=== PATIENT | male | born 1955 | race Caucasian/White ===

== ENCOUNTER 2018-01-26 13:03 | Inpatient (IN) ==
[2018-01-26] MEDS ORDERED: Ipratropium/Albuterol Neb 3 ML IH ONE (13:45)
--- NOTE | 2018-01-26 14:15 | Emergency Department Note ---
Disposition Clinical Impression: Acute exacerbation of chronic obstructive airways disease, Elevated troponin, Hypoxemia Atrial flutter Qualifiers: Atrial flutter type: unspecified Qualified Code(s): I48.92 - Unspecified atrial flutter Disposition: Admitted As Inpatient Condition: Fair SOB HPI - General Chief Complaint: ED Shortness of Breath/Dyspnea Stated Complaint: TEETEE Time Seen by Provider: 01/26/18 13:33 Source: patient Limitations: no limitations Nursing Notes Reviewed: Yes Vital Signs Reviewed: Yes - History of Present Illness Presents with 5 days of shortness of breath worse with exertion and began after he was burning some logs and leaves in his yard and the patient does have a history of emphysema but does not use home oxygen. He does have lung cancer diagnosed 1-1/2 years ago and has had chemotherapy and radiation but no surgery and he denies any chest pain or discomfort. Does have some rhinorrhea, cough, sneeze. No fever or blurred vision. No blood in the urine or stool. No pain or swelling or numbness of the extremities, skin rash or bruising of the skin. Social history: Smoker, is here with his - Related Data Home Medications Medication Instructions Recorded Confirmed Albuterol Sulfate [Proair Hfa] 2 puff IH Q6H PRN 05/19/17 01/26/18 Apixaban [Eliquis] 5 mg PO BID 05/19/17 01/26/18 Atorvastatin Calcium [Lipitor] 80 mg PO HS 05/19/17 01/26/18 Carvedilol 12.5 mg PO BID 05/19/17 01/26/18 Clopidogrel [Plavix] 75 mg PO DAILY 05/19/17 01/26/18 Isosorbide MONOnitrate (24 HR) 30 mg PO DAILY 05/19/17 01/26/18 [Imdur] Lisinopril 2.5 mg PO DAILY 05/19/17 01/26/18 Tizanidine HCl 4 mg PO TID PRN 01/26/18 01/26/18 Previous Rx's Medication Instructions Recorded Omeprazole [PriLOSEC] 20 mg PO DAILY #30 cap 08/16/16 amLODIPine [Norvasc] 10 mg PO DAILY #60 tablet 08/24/16 Allergies Allergy/AdvReac Type Severity Reaction Status Date / Time [place] Allergy Hives Verified 10/19/17 10:47 Review of Systems: As Per HPI Past Medical History - Past Medical History Medical history: Reports: COPD Psychiatric history: Reports: no psych history - Social History Smoking Status: Current every day smoker Smokeless Tobacco Status: No Alcohol use: Reports: rarely Drug use: Reports: none Physical Exam CONSTITUTIONAL: Alert and oriented X3, well-nourished, well appearing, in no apparent distress HEAD: Normocephalic; atraumatic. EYES: PERRL, no scleral icterus. NOSE: The nose is normal in appearance without rhinorrhea RESP: Normal chest excursion with respiration; breath sounds with bilateral rhonchi and wheezing which is symmetric CARD: Regular rhythm, without murmurs, rub or gallop ABD: Non-distended; non-tender, soft,without rigidity, rebound or guarding SKIN: Normal for age and race; warm and dry; no apparent lesions EXTREMITIES: Pulses are 2 plus and equal times 4 extremities, no peripheral edema or calf muscle pain. - General Limitations: no limitations General appearance: alert, in no apparent distress Course Vital Signs Temperature 97.7 F 01/26/18 13:25 Pulse Rate 81 01/26/18 13:25 Respiratory Rate 24 01/26/18 13:25 Blood Pressure 98/57 01/26/18 13:25 O2 Sat by Pulse Oximetry 88 01/26/18 13:25 Temperature 97.7 F 01/26/18 13:41 Pulse Rate 104 01/26/18 17:05 Respiratory Rate 16 01/26/18 17:24 Blood Pressure 92/55 01/26/18 17:24 O2 Sat by Pulse Oximetry 98 01/26/18 17:05 Oxygen Delivery Oxygen Delivery Room Air Shortness of Breath/Dyspnea - [facility] Narrative Medical decision making narrative: Patient's symptoms likely from COPD exacerbation, does have a history of lung cancer, chest x-ray, labs including troponin, EKG. The patient will receive a DuoNeb as well as IV steroids. Will be watched closely here on the monitor and pulse oximeter. 1415 I did review the radiology results without acute abnormality and did read demonstrate the mass but not a infiltrate, I did review the labs with some mild hyponatremia, troponin is elevated. I did speak with the hospitalist accepts the patient for admission for COPD exacerbation. Has already received DuoNeb and steroids and I will add on antibiotics and the patient will be admitted 1553 I was just shown an EKG which was ordered by the nurse and handed to me by the tech just now showing atrial flutter with a rate of 111 bpm 1655 I did speak with the patient and his and the patient does have a history of atrial fibrillation/flutter and does take Eliquis 1729 - Medical Records Medical records reviewed: Yes I reviewed the patient's medical records. - Lab Data Lab results reviewed: Yes I reviewed the patient's lab results. Result diagrams: 01/26/18 14:49 01/26/18 14:49 Lab Results 01/26/18 01/26/18 01/26/18 Range/Units 14:49 14:49 14:49 WBC 11.4 H (4.3-11.1) K/mcL RBC 4.28 (4.19-5.50) M/mcL Hgb 13.0 (12.9-16.9) g/dL Hct 39.2 (37.5-50.1) % MCV 91.6 (83.0-100.0) fL MCH 30.4 (28.0-33.3) pg MCHC 33.2 (31.6-35.5) g/dL RDW 13.0 (11.5-14.5) % Plt Count 322 (140-400) K/mcL MPV 8.8 L (9.4-12.4) fL Immature Gran % 0.3 (0-4) % Seg Neutrophils % 83.0 % Lymphocytes % 7.4 % Monocytes % 8.9 % Eosinophils % 0.1 % Basophils % 0.3 % Neutrophils # 9.5 H (1.6-8.9) K/mcL Lymphocytes # 0.9 (0.6-4.6) K/mcL Monocytes # 1.0 (0.0-1.3) K/mcL Eosinophils # 0.0 (0.0-0.6) K/mcL Basophils # 0.0 (0.0-0.2) K/mcL Sodium 130 L (136-145) mEq/L Potassium 3.9 (3.5-5.1) mEq/L Chloride 95 L (98-107) mEq/L Carbon Dioxide 29 (23-29) mEq/L BUN 37 H (8-23) mg/dL Creatinine 1.17 (0.70-1.30) mg/dL Est GFR ( Amer) > 60 (> 60) Est GFR (Non-Af Amer) > 60 (> 60) BUN/Creatinine Ratio 32 H (6-26) Glucose 123 H (70-105) mg/dL Calculated Osmolality 280 (280-300) Lactic Acid 0.9 (0.5-2.2) mmol/L Calcium 9.6 (8.6-10.3) mg/dL Troponin I 0.07 H* (< 0.04) ng/mL - Radiology Data Radiology results reviewed: Yes I reviewed the patient's radiology results. Critical Care Time Critical Care Time: No
[2018-01-26] MEDS ORDERED: Dexamethasone 4 MG/ML VIAL IVP ONE (14:16)
[2018-01-26 15:06] LABS: Hematocrit 39.2 % (37.5-50.1); Mean Corpuscular HGB Conc 33.2 g/dL (31.6-35.5); Mean Corpuscular Hemoglobin 30.4 pg (28.0-33.3); Mean Corpuscular Volume 91.6 fL (83.0-100.0); Mean Platelet Volume 8.8 fL (9.4-12.4); Platelet Count 322 K/mcL (140-400); Red Blood Count 4.28 M/mcL (4.19-5.50)
[2018-01-26 15:07] LABS: Basophils % 0.3 %; Eosinophils % 0.1 %; Immature Granulocytes % 0.3 % (0-4); Lymphocytes # 0.9 K/mcL (0.6-4.6); Lymphocytes % 7.4 %; Monocytes % 8.9 %; Neutrophils # 9.5 K/mcL (1.6-8.9)
[2018-01-26 15:31] LABS: BUN/Creatinine Ratio 32 (6-26); Blood Urea Nitrogen 37 mg/dL (8-23); Calcium 9.6 mg/dL (8.6-10.3); Carbon Dioxide 29 mEq/L (23-29); Chloride 95 mEq/L (98-107); Glucose 123 mg/dL (70-105); Osmolality,Calculated 280 (280-300); Potassium 3.9 mEq/L (3.5-5.1); Sodium 130 mEq/L (136-145); eGFR For Non-African Americans > 60 (> 60)
[2018-01-26 15:35] LABS: Troponin I 0.07 ng/mL (< 0.04)
[2018-01-26] MEDS ORDERED: cefTRIAXone 1,000 MG in Water for inj. (sterile) 20 ML 10 ML IVPB ONE (16:17)
[2018-01-26] MEDS ORDERED: Azithromycin 500 MG in D5% in Water 250 ML IVPB ONE (16:17)
[2018-01-26] MEDS ORDERED: 0.9 % Sodium Chloride 1,000 ML ONE (17:00)
[2018-01-26] MEDS ORDERED: Acetaminophen 325 MG TABLET PO PRN (19:54)
[2018-01-26] MEDS ORDERED: Naloxone 0.4 MG/ML INJ IVP PRN (19:54)
[2018-01-26] MEDS ORDERED: Ondansetron 4 MG/2 ML VIAL IVP PRN (19:55)
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
[2018-01-26] MEDS ORDERED: tiZANidine 4 MG TABLET PO PRN (20:53)
[2018-01-26] MEDS ORDERED: *HR* HYDROcodone/Acet 5/325 mg TABLET PO PRN (20:54)
[2018-01-26] MEDS: predniSONE 20 MG TABLET PO SCH (21:17)
[2018-01-26] MEDS: Apixaban 5 MG TABLET PO SCH (21:18)
[2018-01-26] MEDS: Ipratropium/Albuterol Neb 3 ML IH SCH (23:46)
[2018-01-27] MEDS: Ipratropium/Albuterol Neb 3 ML IH SCH ×4 (03:52→23:12)
[2018-01-27 03:58] LABS: Basophils % 0.2 %; Hematocrit 38.7 % (37.5-50.1); Hemoglobin 12.7 g/dL (12.9-16.9); Immature Granulocytes % 0.3 % (0-4); Lymphocytes # 0.4 K/mcL (0.6-4.6); Lymphocytes % 6.5 %; Mean Corpuscular HGB Conc 32.8 g/dL (31.6-35.5); Mean Corpuscular Volume 91.3 fL (83.0-100.0); Mean Platelet Volume 8.9 fL (9.4-12.4); Monocytes # 0.2 K/mcL (0.0-1.3); Monocytes % 2.5 %; Neutrophils # 5.7 K/mcL (1.6-8.9); Platelet Count 307 K/mcL (140-400); Red Blood Count 4.24 M/mcL (4.19-5.50); Red Cell Distribution Width 12.8 % (11.5-14.5); Segmented Neutrophils % 90.5 %
[2018-01-27 04:23] LABS: Troponin I 0.03 ng/mL (< 0.04)
[2018-01-27] MEDS: Nicotine 14 MG PATCH.TD24 TD SCH (07:49)
[2018-01-27] MEDS: Isosorbide MONOnitrate (24 HR) 30 MG TAB.ER.24H PO SCH ×2 (07:49→08:14)
[2018-01-27] MEDS: Apixaban 5 MG TABLET PO SCH ×2 (07:50→20:04)
[2018-01-27] MEDS: predniSONE 20 MG TABLET PO SCH ×3 (07:50→20:04)
[2018-01-27] MEDS ORDERED: Amiodarone Premix 150 MG/100 ML BAG IVPB ONE (08:33)
[2018-01-27 08:36] LABS: Magnesium 2.3 mg/dL (1.6-2.6); Phosphorous 3.2 mg/dL (2.7-4.5)
[2018-01-27] MEDS ORDERED: Amiodarone Premix 360 MG/200 ML BAG IVC ONE (08:43)
[2018-01-27] MEDS ORDERED: amLODIPine 5 MG TABLET PO SCH (09:00)
[2018-01-27] MEDS ORDERED: levoFLOXacin 500 MG TABLET PO SCH (09:00)
[2018-01-27 09:15] LABS: Thyroid Stimulating Hormone 0.261 mcIU/mL (0.340-5.600)
[2018-01-27] MEDS: amLODIPine 5 MG TABLET PO SCH (09:37)
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
--- NOTE | 2018-01-27 18:26 | Internal Med Progress Note ---
Hospitalist Progress Note - Encounter Date of Encounter: 01/27/18 Time of Encounter: 18:24 - Subjective Interval History: Pt states he is feeling better. Denies worsening SOB or SOB at rest. Notified by nurse that his HR was in 150's. EKG showed A flutter with 3 to one conduction and elevated HR likely an over read. Discussed to cardiology. Pt reports prior hx of A flutter. Denies CP. - Exam Vitals: Temp Pulse Resp BP Pulse Ox 97.8 F 78 16 104/64 95 01/27/18 15:47 01/27/18 16:02 01/27/18 16:18 01/27/18 18:00 01/27/18 16:18 Exam: General appearance: Present: A&O X 3, no acute distress Exam: - Head Head exam: Present: atraumatic, normocephalic - Eye Eye exam: Present: PERRL, conjuntiva pink, sclera anicteric Pupils: Present: PERRL - Neck Neck exam general surgery: Present: supple, trachea midline. Absent: lymphadenopathy - Respiratory Respiratory exam: Present: Positive wheezing. Absent: accessory muscle use, rales, or rhonchi. - Cardiovascular Cardiovascular exam: Present: RRR but tachy, +S1, +S2. Absent: diastolic murmur , gallop, rubs, systolic murmur - GI/Abdominal GI/Abdominal exam: Present: normal bowel sounds, soft, no peritoneal signs. Absent: distended, tenderness - Extremities Exam Extremities exam: Present: warm, radial pulses palpable and symmetrical. Absent : calf tenderness, cyanotic, pedal edema - Neurological Exam Neurological exam: Present: CN II-XII intact, oriented X3, no focal deficits. Absent: pronater drift, facial droop, speech deficit - Skin Skin exam: Present: dry, intact - Assessment and Plan (1) Atrial flutter Current Visit: Yes Status: Acute Assessment and Plan: Pt on ELiquis. Unable to give cardizem due to low BP. cardiology consulted to see. Amiodarone gtt started. (2) Acute exacerbation of chronic obstructive airways disease Current Visit: Yes Status: Acute Assessment and Plan: Pt states he's much improved after neb treatment in ED. Pt is not on home O2. Will continue with nebs and steriod. will place on levaquin for prophylaxis but was DCed due to need to start amiodarone for A flutter. (3) Elevated troponin Current Visit: Yes Status: Acute (4) Chronic thoracic back pain Current Visit: No Status: Chronic Assessment and Plan: Resume prn pain meds (5) Squamous cell carcinoma of left lung Current Visit: No Status: Chronic Assessment and Plan: s/p chemo and radiation follows up with oncology. Diagnosed Jun 07 2016. (6) CAD (coronary artery disease) Current Visit: Yes Status: Acute Assessment and Plan: Pt states he is s/p LHC with stents Mar 2017. Resumed home ASA, statin, BB, and DVT Prophylaxis: Eliquis - Summary of Assessment and Plan Summary of Assessment and Plan: Mr. Tolentino is a 62 year old male with past medical history of lung CA s/p chemo and radiation, COPD, atrial flutter who presents with worsening SOB. HE denies fever or chills. He does report cough but denies sputum production. He denies chest pain. He denies sick contacts. He denies recent steroid use. Pt is not on home oxygen and plan to wean prior to discharge. - Time Spent with Patient Total time spent is greater than 50% in coordination of care (as documented) at patient's floor/unit and/or counseling patient: less than 15 minutes Plan of Care Discussed with: patient Internal Medicine: Result - Labs CBC & Chem 7: 01/27/18 03:21 01/26/18 14:49 Labs: Short CBC 01/27/18 Range/Units 03:21 WBC 6.3 (4.3-11.1) K/mcL Hgb 12.7 L (12.9-16.9) g/dL Hct 38.7 (37.5-50.1) % Plt Count 307 (140-400) K/mcL Neutrophils # 5.7 (1.6-8.9) K/mcL Cardiac Enzymes 01/26/18 01/27/18 Range/Units 21:13 03:21 Troponin I < 0.03 0.03 (< 0.04) ng/mL Consult Discharge Plan - Plan Referrals: Jovana Winkler CNP [Partnered Physician] - (Office will call patient at home with follow up appointment) Kuldip Argueta MD [Primary Care Provider] - 02/01/18 2:30 pm (1) Atrial flutter Qualifiers: Atrial flutter type: atypical Qualified Code(s): I48.4 - Atypical atrial flutter (4) Chronic thoracic back pain Qualifiers: Back pain laterality: midline Qualified Code(s): M54.6 - Pain in thoracic spine; G89.29 - Other chronic pain (6) CAD (coronary artery disease) Qualifiers: Coronary Disease-Associated Artery/Lesion type: [place] artery [place] vs. transplanted heart: [place] heart Associated angina: without angina Qualified Code(s): I25.10 - Atherosclerotic heart disease of [place] coronary artery without angina pectoris
[2018-01-27] MEDS: Amiodarone Premix 360 MG/200 ML BAG IVC SCH (20:04)
[2018-01-28] MEDS: Ipratropium/Albuterol Neb 3 ML IH SCH ×4 (04:19→22:04)
[2018-01-28] MEDS: Amiodarone Premix 360 MG/200 ML BAG IVC SCH ×2 (05:14→16:51)
--- NOTE | 2018-01-28 09:03 | Internal Med Progress Note ---
<Waldemar Burk - Last Filed: 01/28/18 09:42> Hospitalist Progress Note - Encounter Date of Encounter: 01/28/18 Time of Encounter: 09:12 - Subjective Interval History: Mr. Virgen is a 62M with PMH of left lung ca s/p chemo and radiation, COPD, atrial flutter, and tobacco abuse. He was admitted on 01/26 for worsening shortness of breath. Chest x-ray in the ED revealed mild basilar atelectasis, and left upper opacity they can be correlated to patient's known lung mass. He denied any fever, chills, or recent illness. No increased cough, increased sputum production, or change in sputum character. Today patient seen and examined at bedside. Resting comfortably in bed, in no acute distress. Patient states feels better today, and is asking about when he can be discharged. No new or acute complaints. Denies any chest pain, shortness of breath, fever, chills, abdominal pain, nausea, vomiting, numbness, tingling, or headache. - Exam Vitals: Temp Pulse Resp BP Pulse Ox 97.5 F L 59 17 101/67 93 01/28/18 07:12 01/28/18 07:12 01/28/18 07:12 01/28/18 07:12 01/28/18 07:12 Exam: Constitutional: Well-nourished well-developed male. No acute distress Head: Normocephalic, atraumatic Eyes: PERRL, EOMI, conjunctiva pink, sclera anicteric Neck: Supple, trachea midline, no lymphadenopathy Lungs: Diffuse fine wheezes, particularly increase in the right upper lobe.. Nonlabored breathing. No rales, or rhonchi noted. Cardiac: RRR. No murmurs, clicks, or rubs noted. GI: Abdomen soft, nontender, nondistended. Normoactive bowel sounds Extremities: Warm, radial pulses palpable and symmetrical. No cyanosis, pedal edema, or calf tenderness. Neuro: Alert and oriented 3. No focal deficits. Normal speech. Skin: Warm, dry, and intact. - Assessment and Plan (1) Atrial flutter Current Visit: Yes Status: Acute Assessment and Plan: IV amiodarone initiated yesterday for RVR Intermittent episodes of bradycardia as low as 59 On Eliquis Spoke with Cardiology, they recommended stopping the Amiodarone since pt became bradycardic. They are fine with rate controlling with pt's home BB. Continue Eliquis Continue Coreg (2) Acute exacerbation of chronic obstructive airways disease Current Visit: Yes Status: Acute Assessment and Plan: Not on home O2 No recent illness, no fever or chills. No increased cough, increased sputum production, or change in sputum character. Has baseline mostly dry cough with occasional white/clear sputum production. Continue duonebs Taper prednisone to 40mg qd today (3) Squamous cell carcinoma of left lung Current Visit: No Status: Chronic Assessment and Plan: s/p chemo and radiation Diagnosed Jun 07 2016. follows up with oncology (4) Chronic thoracic back pain Current Visit: No Status: Chronic Assessment and Plan: prn pain meds per home regimen (5) Elevated troponin Current Visit: Yes Status: Resolved Assessment and Plan: Initial troponin in the ED was mildly elevated. Serial troponin since has been normal. Likely related to initial shortness of breath (6) CAD (coronary artery disease) Current Visit: Yes Status: Acute Assessment and Plan: s/p LHC with stents Mar 2017 Continue home Plavix, Eliquis, Lipitor, and Coreg DVT Prophylaxis: On Eliquis - Time Spent with Patient Total time spent is greater than 50% in coordination of care (as documented) at patient's floor/unit and/or counseling patient: Plan of Care Discussed with: patient Internal Medicine: Result - Labs CBC & Chem 7: 01/27/18 03:21 01/26/18 14:49 Consult Discharge Plan - Plan Referrals: Jovana Winkler CNP [Partnered Physician] - (Office will call patient at home with follow up appointment) Kuldip Argueta MD [Primary Care Provider] - 02/01/18 2:30 pm <Lazaro Flood - Last Filed: 01/28/18 19:20> Hospitalist Progress Note - Encounter Date of Encounter: 01/28/18 - Exam Vitals: Temp Pulse Resp BP Pulse Ox 98.1 F 121 18 100/82 92 01/28/18 16:20 01/28/18 18:24 01/28/18 18:24 01/28/18 18:24 01/28/18 18:24 - Assessment and Plan (1) Squamous cell carcinoma of left lung Current Visit: No Status: Chronic (2) Chronic thoracic back pain Current Visit: No Status: Chronic (3) Acute exacerbation of chronic obstructive airways disease Current Visit: Yes Status: Acute (4) Elevated troponin Current Visit: Yes Status: Resolved (5) Atrial flutter Current Visit: Yes Status: Acute (6) CAD (coronary artery disease) Current Visit: Yes Status: Acute - Time Spent with Patient Total time spent is greater than 50% in coordination of care (as documented) at patient's floor/unit and/or counseling patient: Internal Medicine: Result - Labs CBC & Chem 7: 01/28/18 09:24 01/28/18 09:24 Labs: Short CBC 01/28/18 Range/Units 09:24 WBC 15.9 H D (4.3-11.1) K/mcL Hgb 12.4 L (12.9-16.9) g/dL Hct 36.8 L (37.5-50.1) % Plt Count 367 (140-400) K/mcL Neutrophils # 14.7 H (1.6-8.9) K/mcL BMP 01/28/18 09:24 Sodium 134 L Potassium 4.3 Chloride 101 Carbon Dioxide 30 H BUN 20 Creatinine 0.68 L Glucose 151 H Calcium 9.7 - Attending Attestation I examined this patient and my medical decision-making was reviewed with the Resident Physician Dr. Burk. I agree with the documented findings, disposition and treatment plan as described except to the extent set forth below. Mr. Tolentino is a 62 year old male with PMHx significant for COPD, lung CA ( current), CAD s/p PCI, and afib who presented to the ED with worsening shortness of breath over the past several days. He was admitted in the hospital and acute COPD exacerbation and later he happened to have atrial flutter with RVR. His SOB is lot better today. He is breathing comfortably on RA. He was started on Amiodarone gtt for his Atrial flutter. His HR well controlled and in high 50's. So d/c Amiodarone gtt and continued Coreg PO. Talked to Cardiology , they recommend to continue BB only. Cut down on PO steroids. Possible d/c home in AM.. Chest: Diminished BS b/l, mild wheezing Heart: S1S2+ Afib. <Waldemar Burk - Last Filed: 01/28/18 09:42> (1) Atrial flutter Qualifiers: Atrial flutter type: atypical Qualified Code(s): I48.4 - Atypical atrial flutter (4) Chronic thoracic back pain Qualifiers: Back pain laterality: midline Qualified Code(s): M54.6 - Pain in thoracic spine; G89.29 - Other chronic pain (6) CAD (coronary artery disease) Qualifiers: Coronary Disease-Associated Artery/Lesion type: [place] artery [place] vs. transplanted heart: [place] heart Associated angina: without angina Qualified Code(s): I25.10 - Atherosclerotic heart disease of [place] coronary artery without angina pectoris <Lazaro Flood - Last Filed: 01/28/18 19:20> (2) Chronic thoracic back pain Qualifiers: Back pain laterality: midline Qualified Code(s): M54.6 - Pain in thoracic spine; G89.29 - Other chronic pain (5) Atrial flutter Qualifiers: Atrial flutter type: atypical Qualified Code(s): I48.4 - Atypical atrial flutter (6) CAD (coronary artery disease) Qualifiers: Coronary Disease-Associated Artery/Lesion type: [place] artery [place] vs. transplanted heart: [place] heart Associated angina: without angina Qualified Code(s): I25.10 - Atherosclerotic heart disease of [place] coronary artery without angina pectoris
[2018-01-28] MEDS: Nicotine 14 MG PATCH.TD24 TD SCH (09:10)
[2018-01-28] MEDS: Apixaban 5 MG TABLET PO SCH ×2 (09:12→21:23)
[2018-01-28] MEDS: predniSONE 20 MG TABLET PO SCH (09:12)
[2018-01-28] MEDS: amLODIPine 5 MG TABLET PO SCH (09:13)
[2018-01-28] MEDS: Isosorbide MONOnitrate (24 HR) 30 MG TAB.ER.24H PO SCH (09:13)
[2018-01-28 09:40] LABS: Basophils % 0.1 %; Hematocrit 36.8 % (37.5-50.1); Hemoglobin 12.4 g/dL (12.9-16.9); Immature Granulocytes % 0.6 % (0-4); Lymphocytes # 0.5 K/mcL (0.6-4.6); Lymphocytes % 3.4 %; Mean Corpuscular HGB Conc 33.7 g/dL (31.6-35.5); Mean Corpuscular Hemoglobin 30.5 pg (28.0-33.3); Mean Corpuscular Volume 90.6 fL (83.0-100.0); Monocytes # 0.5 K/mcL (0.0-1.3); Monocytes % 3.3 %; Neutrophils # 14.7 K/mcL (1.6-8.9); Platelet Count 367 K/mcL (140-400); Red Blood Count 4.06 M/mcL (4.19-5.50); Red Cell Distribution Width 12.8 % (11.5-14.5); Segmented Neutrophils % 92.6 %
[2018-01-28 09:56] LABS: BUN/Creatinine Ratio 29 (6-26); Blood Urea Nitrogen 20 mg/dL (8-23); Calcium 9.7 mg/dL (8.6-10.3); Carbon Dioxide 30 mEq/L (23-29); Chloride 101 mEq/L (98-107); Glucose 151 mg/dL (70-105); Osmolality,Calculated 284 (280-300); Potassium 4.3 mEq/L (3.5-5.1); Sodium 134 mEq/L (136-145); eGFR For Non-African Americans > 60 (> 60)
--- NOTE | 2018-01-28 10:37 | Event Note ---
Date of Encounter: 01/28/18 Time of Encounter: 09:00 - Cardiology Event Note Afib/flutter in the setting of COPD exacerbation. Discussed with primary service, given controlled HR's, no longer require Cardio input. Amiodarone gtt stopped, Afib/flutter in the 60's. Continue BB for rate control; continue Eliquis for AC. Will coordinate outpatient follow-up. Impressions Echocardiogram 01/27/18 12:58 Impressions: LVEF 60%. Normal LV chamber size, wall thickness and function. Indeterminate diastolic function. Normal right ventricular structure and function. Moderate left atrial enlargement. No evidence of pulmonary hypertension.
[2018-01-29] MEDS: Amiodarone Premix 360 MG/200 ML BAG IVC SCH (02:05)
[2018-01-29] MEDS: Ipratropium/Albuterol Neb 3 ML IH SCH ×2 (04:17→11:25)
[2018-01-29 05:02] LABS: Hematocrit 37.2 % (37.5-50.1); Hemoglobin 12.3 g/dL (12.9-16.9); Immature Granulocytes % 0.3 % (0-4); Lymphocytes # 0.9 K/mcL (0.6-4.6); Lymphocytes % 7.6 %; Mean Corpuscular HGB Conc 33.1 g/dL (31.6-35.5); Mean Corpuscular Hemoglobin 30.3 pg (28.0-33.3); Mean Corpuscular Volume 91.6 fL (83.0-100.0); Mean Platelet Volume 8.9 fL (9.4-12.4); Monocytes # 0.7 K/mcL (0.0-1.3); Monocytes % 5.9 %; Neutrophils # 10.3 K/mcL (1.6-8.9); Platelet Count 363 K/mcL (140-400); Red Blood Count 4.06 M/mcL (4.19-5.50); Red Cell Distribution Width 12.9 % (11.5-14.5); Segmented Neutrophils % 86.2 %
[2018-01-29 05:23] LABS: BUN/Creatinine Ratio 29 (6-26); Blood Urea Nitrogen 19 mg/dL (8-23); Calcium 9.4 mg/dL (8.6-10.3); Carbon Dioxide 30 mEq/L (23-29); Chloride 100 mEq/L (98-107); Glucose 121 mg/dL (70-105); Osmolality,Calculated 284 (280-300); Potassium 3.7 mEq/L (3.5-5.1); Sodium 135 mEq/L (136-145); eGFR For Non-African Americans > 60 (> 60)
[2018-01-29 05:38] LABS: Triiodothyronine (T3) Free 2.19 pg/mL (2.50-3.90)
--- NOTE | 2018-01-29 08:28 | Discharge Summary ---
<Waldemar Burk Cecelia - Last Filed: 01/29/18 13:34> - NOTES TO OUTPATIENT PROVIDER Notes to Outpatient Provider: Mr. Virgen was admitted on 01/26 for worsening shortness of breath. Chest x-ray in the ED revealed mild basilar atelectasis, and left upper opacity that can be correlated to patient's known lung mass. He denied any fever, chills, or recent illness. No increased cough, increased sputum production, or change in sputum character. He was started on steroid therapy for COPD exacerbation which was tapered down to Prednisone 40mg daily at time of discharge. No abx were given since no signs or symptoms of infectious causes. Pt was trialed on Amiodarone since he was found to have Atrial Flutter with RVR. His blood pressure did not tolerate the Amio, trialed 50mg Metoprolol BID which he has tolerated thus far. He was also prescribed Breo Ellipta inhaler for COPD. Orders not resulted at time of discharge: Pending orders 01/28/18 07:37 EKG [ECG 12 lead ECG] [ECG] Routine Date of Encounter: 01/29/18 Time of Encounter: 08:17 - Discharge Diagnosis (1) Atrial flutter Priority: Secondary Status: Acute Assessment and Plan: IV amiodarone initiated for RVR Intermittent episodes of bradycardia as low as 59 Spoke with Cardiology, they recommended stopping the Amiodarone since pt became bradycardic. They were fine with rate control via pt's home Coreg. However this morning pt's HR was in 150s Stopped Coreg Started Metoprolol 50mg BID Tolerated well for 5 hours. BP stable at 111/68 Continue Metoprolol and Eliquis Qualifiers: Atrial flutter type: atypical Qualified Code(s): I48.4 - Atypical atrial flutter (2) Acute exacerbation of chronic obstructive airways disease Priority: Primary Status: Acute Assessment and Plan: Not on home O2 No recent illness, no fever or chills. No increased cough, increased sputum production, or change in sputum character. Has baseline mostly dry cough with occasional white/clear sputum production. Continue Prednisone 40mg to complete the taper Start Breo Ellipta since pt has COPD but only uses albuterol rescue inhaler at home (3) Squamous cell carcinoma of left lung Priority: Secondary Status: Chronic Assessment and Plan: s/p chemo and radiation Diagnosed Jun 07 2016. follows up with oncology (4) Chronic thoracic back pain Priority: Secondary Status: Chronic Assessment and Plan: prn pain meds per home regimen Qualifiers: Back pain laterality: midline Qualified Code(s): M54.6 - Pain in thoracic spine; G89.29 - Other chronic pain (5) Elevated troponin Priority: Secondary Status: Resolved Assessment and Plan: Initial troponin in the ED was mildly elevated. Serial troponin since has been normal. Likely 2/2 demand ischemia related to initial shortness of breath (6) CAD (coronary artery disease) Priority: Secondary Status: Acute Assessment and Plan: s/p C with stents Mar 2017 Continue home Plavix, Eliquis, and Lipitor Stopped Coreg and started Metoprolol 50mg BID Qualifiers: Coronary Disease-Associated Artery/Lesion type: [place] artery [place] vs. transplanted heart: [place] heart Associated angina: without angina Qualified Code(s): I25.10 - Atherosclerotic heart disease of [place] coronary artery without angina pectoris Hospital course: Mr. Tolentino is a 62 year old male Discharge discussed with: patient, family, nurse - Time Spent with Patient Total time spent providing and/or coordinating discharge services: - Discharge Medications Prescriptions: Fluticasone/Vilanterol [Breo Ellipta 100-25 Mcg INH] 1 each IH DAILY 30 Days #1 blst.w.dev Metoprolol [Lopressor] 50 mg PO BID 30 Days #60 tablet predniSONE [PredniSONE] 40 mg PO DAILY 14 Days #14 tablet Home Medications: Omeprazole [PriLOSEC] 20 mg PO DAILY #30 cap 08/16/16 [Rx] amLODIPine [Norvasc] 10 mg PO DAILY #60 tablet 08/24/16 [Rx] Albuterol Sulfate [Proair Hfa] 2 puff IH Q6H PRN 05/19/17 [History] Apixaban [Eliquis] 5 mg PO BID 05/19/17 [History] Atorvastatin Calcium [Lipitor] 80 mg PO HS 05/19/17 [History] Clopidogrel [Plavix] 75 mg PO DAILY 05/19/17 [History] Isosorbide MONOnitrate (24 HR) [Imdur] 30 mg PO DAILY 05/19/17 [History] Lisinopril 2.5 mg PO DAILY 05/19/17 [History] Tizanidine HCl 4 mg PO TID PRN 01/26/18 [History] Fluticasone/Vilanterol [Breo Ellipta 100-25 Mcg INH] 1 each IH DAILY 30 Days #1 blst.w.dev 01/29/18 [Rx] Metoprolol [Lopressor] 50 mg PO BID 30 Days #60 tablet 01/29/18 [Rx] predniSONE [PredniSONE] 40 mg PO DAILY 14 Days #14 tablet 01/29/18 [Rx] Allergies/Adverse Reactions: 3 Allergy/AdvReac Type Severity Reaction Status Date / Time [place] Allergy Hives Verified 10/19/17 10:47 Date of admission: 01/27/18 17:59 Primary care physician: Kuldip Argueta MD Discharging clinician: Waldemar Burk - Constitutional Vitals: Temp Pulse Resp BP Pulse Ox 97.8 F 80 16 110/74 94 01/29/18 07:00 01/29/18 07:00 01/29/18 07:00 01/29/18 07:00 01/29/18 07:00 General appearance: Present: A&O X 3, no acute distress Exam: Constitutional: Well-nourished well-developed male. No acute distress Head: Normocephalic, atraumatic Eyes: PERRL, EOMI, conjunctiva pink, sclera anicteric Neck: Supple, trachea midline, no lymphadenopathy Lungs: Diffuse fine wheezes, particularly increase in the right upper lobe.. Nonlabored breathing. No rales, or rhonchi noted. Cardiac: RRR. No murmurs, clicks, or rubs noted. GI: Abdomen soft, nontender, nondistended. Normoactive bowel sounds Extremities: Warm, radial pulses palpable and symmetrical. No cyanosis, pedal edema, or calf tenderness. Neuro: Alert and oriented 3. No focal deficits. Normal speech. Skin: Warm, dry, and intact. - Patient Status Disposition: Home, Self-Care Condition: Fair Functional capacity at discharge: independent ambulation Overall status at discharge: patient is back to baseline - Discharge Instructions Instructions: Metoprolol (By mouth), Prednisone (By mouth), Fluticasone/ Vilanterol (By breathing), Atrial Flutter (DC), Chronic Obstructive Pulmonary Disease (DC) Follow Up With: Jovana Winkler CNP [Partnered Physician] - (Office will call patient at home with follow up appointment) Kuldip Argueta MD [Primary Care Provider] - 02/01/18 2:30 pm Forms: Inpatient Work/School Release - Diet and Activity Activity: increase activity as tolerated, resume usual activities as tolerated Diet: low fat, low cholesterol, low salt diet <ThalJoni carterbu - Last Filed: 01/29/18 15:08> Orders not resulted at time of discharge: Pending orders 01/28/18 07:37 EKG [ECG 12 lead ECG] [ECG] Routine 01/29/18 08:56 EKG [ECG 12 lead ECG] [ECG] Stat Date of Encounter: 01/29/18 - Discharge Diagnosis (1) Squamous cell carcinoma of left lung Status: Chronic (2) Chronic thoracic back pain Status: Chronic Qualifiers: Back pain laterality: midline Qualified Code(s): M54.6 - Pain in thoracic spine; G89.29 - Other chronic pain (3) Acute exacerbation of chronic obstructive airways disease Status: Acute (4) Elevated troponin Status: Resolved (5) Atrial flutter Status: Acute Qualifiers: Atrial flutter type: atypical Qualified Code(s): I48.4 - Atypical atrial flutter (6) CAD (coronary artery disease) Status: Acute Qualifiers: Coronary Disease-Associated Artery/Lesion type: [place] artery [place] vs. transplanted heart: [place] heart Associated angina: without angina Qualified Code(s): I25.10 - Atherosclerotic heart disease of [place] coronary artery without angina pectoris Hospital course: Mr. Tolentino is a 62 year old male - Time Spent with Patient Total time spent providing and/or coordinating discharge services: Date of admission: 01/27/18 17:59 Primary care physician: Kuldip Argueta MD - Constitutional Vitals: Temp Pulse Resp BP Pulse Ox 98 F 60 16 114/68 96 01/29/18 11:29 01/29/18 11:29 01/29/18 11:29 01/29/18 11:29 01/29/18 11:29 - Attending Attestation I examined this patient and my medical decision-making was reviewed with the Resident Physician Dr. Burk. I agree with the documented findings, disposition and treatment plan as described except to the extent set forth below. Mr. Tolentino is a 62 year old male with PMHx significant for COPD, lung CA ( current), CAD s/p PCI, and afib who presented to the ED with worsening shortness of breath over the past several days. He was admitted in the hospital and acute COPD exacerbation and later he happened to have atrial flutter with RVR. His SOB is lot better today. He is breathing comfortably on RA. He was started on Amiodarone gtt for his Atrial flutter. His HR was fairly controlled this morning so stopped his Coreg and switched to PO Metoprolol and d/c Amiodarone too. Now his HR in 70's, BP stabel in 130's. So will d/c him home today in stable condition. Chest: Diminished BS b/l, mild wheezing Heart: S1S2+ Afib.
[2018-01-29] MEDS: Isosorbide MONOnitrate (24 HR) 30 MG TAB.ER.24H PO SCH (08:35)
[2018-01-29] MEDS: Nicotine 14 MG PATCH.TD24 TD SCH (08:36)
[2018-01-29] MEDS: Apixaban 5 MG TABLET PO SCH (08:36)
[2018-01-29] MEDS: amLODIPine 5 MG TABLET PO SCH (08:36)
[2018-01-29] MEDS ORDERED: *HR* Metoprolol 5 MG/5 ML VIAL IVP ONE (08:40)
[2018-01-29] MEDS ORDERED: Amiodarone Premix 150 MG/100 ML BAG IVPB ONE ×2 (08:46→08:50)
[2018-01-29] MEDS ORDERED: *HR* Amiodarone 150 MG/3 ML VIAL IVPB ONE (08:47)
[2018-01-29] MEDS ORDERED: predniSONE 20 MG TABLET PO SCH (09:00)
[2018-01-29 11:32] VITALS: BP 114/68
--- NOTE | 2018-01-30 15:47 | Electrocardiograph Report ---
[address] [place], [place] [address] Test Date: 2018-01-26 Pat Name: Garcia Tolentino Department: EXAM5 Room: 2N05 Gender: M Life Skills Consultant: : 1955 Requested By: Indio Sorenson Order Number: [id number] Reading MD: Garfield Conley Measurements Intervals [place] Rate: 79 P: 0 [place]: 59 QRS: 108 QRSD: 172 T: 74 QT: 485 QTc: 542 Interpretive Statements Sinus rhythm Atrial premature complex Possible left atrial enlargement Nonspecific intraventricular conduction delay Possible anterior infarct, age undetermined Electronically Signed On 01-30-2018 15:45:39 EDT by Garfield Conley
--- NOTE | 2018-01-30 15:51 | Electrocardiograph Report ---
[place] [address] Test Date: 2018-01-26 Pat Name: Garcia Tolentino Department: EXAM5 Room: 2N05 Gender: M Photogravure Press Operator: : 1955 Requested By: Jose Walls Order Number: [id number] Reading MD: Garfield Conley Measurements Intervals [place] Rate: 111 P: [place]: QRS: 91 QRSD: 126 T: -83 QT: 354 QTc: 416 Interpretive Statements Atrial fluter/fibrillation IVCD Possible anterior infarct, age undetermined Electronically Signed On 01-30-2018 15:49:32 EDT by Garfield Conley
--- NOTE | 2018-01-30 16:11 | Electrocardiograph Report ---
[place] [address] Test Date: 2018-01-27 Pat Name: Garcia Tolentino Department: 113 Room: 2N05 Gender: M Treater Helper: : 1955 Requested By: Tanika Ingram Order Number: [id number] Reading MD: Garfield Conley Measurements Intervals [place] Rate: 91 P: [place]: 0 QRS: 75 QRSD: 88 T: 70 QT: 321 QTc: 370 Interpretive Statements ATRIAL FLUTTER NONSPECIFIC ST-T CHANGES Electronically Signed On 01-30-2018 16:09:47 EDT by Garfield Conley
--- NOTE | 2018-01-30 16:40 | Electrocardiograph Report ---
[address] [address] Test Date: 2018-01-27 Pat Name: Garcia Tolentino Department: 113 Room: 2N05 Gender: Adult Education Professional: : 1955 Requested By: Tanika Ingram Order Number: [id number] Reading MD: Garfield Conley Measurements Intervals [place] Rate: 105 P: [place]: 0 QRS: 16 QRSD: 109 T: 66 QT: 339 QTc: 400 Interpretive Statements ATRIAL FLUTTER/TACHYCARDIA WITH RAPID VENTRICULAR RESPONSE LOW QRS VOLTAGE IN EXTREMITY LEADS Electronically Signed On 01-30-2018 16:38:31 EDT by Garfield Conley
--- NOTE | 2018-01-31 10:09 | Electrocardiograph Report ---
[place] [address] Test Date: 2018-01-28 Pat Name: Garcia Tolentino Department: 110 Room: 2N05 Gender: M Manager Portable: : 1955 Requested By: Jovana Winkler Order Number: [id number] Reading MD: Garfield Conley Measurements Intervals [place] Rate: 55 P: 75 [place]: 144 QRS: 80 QRSD: 105 T: 73 QT: 430 QTc: 419 Interpretive Statements SINUS BRADYCARDIA LOW QRS VOLTAGE IN EXTREMITY LEADS Electronically Signed On 01-31-2018 10:07:19 EDT by Garfield Conely
--- NOTE | 2018-01-31 11:06 | Electrocardiograph Report ---
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
--- NOTE | 2018-01-31 11:07 | Electrocardiograph Report ---
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
--- NOTE | 2018-01-31 17:52 | Electrocardiograph Report ---
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
== END 2018-01-29 14:09 | disposition home or self-care (01) | DRG 140 ==
LOC: EMEROOARM 13:03 → 3BNU 13:03 → 2NNU 01-27 15:46 → SUATTDRO 01-27 17:59
PROVIDERS: ADMIT Internal Medicine; ATTEND Family Medicine

== ENCOUNTER 2019-06-05 02:17 | Inpatient (IN) ==
[2019-06-05] MEDS ORDERED: Acetaminophen 325 MG TABLET PO PRN ×2 (05:32→17:26)
[2019-06-05] MEDS ORDERED: Naloxone 0.4 MG/ML INJ IVP PRN ×2 (05:32→17:26)
[2019-06-05] MEDS ORDERED: Ondansetron 4 MG/2 ML VIAL IVP PRN ×2 (05:32→17:26)
[2019-06-05] MEDS ORDERED: Ipratropium/Albuterol Neb 3 ML IH PRN ×2 (06:26→17:26)
[2019-06-05] MEDS ORDERED: Nicotine 2 MG GUM BC PRN (06:27)
[2019-06-05 06:30] LABS: Basophils # 0.1 K/mcL (0.0-0.2); Basophils % 0.6 %; Eosinophils # 0.1 K/mcL (0.0-0.6); Hematocrit 38.9 % (37.5-50.1); Hemoglobin 13.1 g/dL (12.9-16.9); Immature Granulocytes % 0.1 % (0-4); Lymphocytes # 1.1 K/mcL (0.6-4.6); Lymphocytes % 13.2 %; Mean Corpuscular HGB Conc 33.7 g/dL (31.6-35.5); Mean Corpuscular Hemoglobin 31.8 pg (28.0-33.3); Mean Corpuscular Volume 94.4 fL (83.0-100.0); Mean Platelet Volume 8.9 fL (9.4-12.4); Monocytes # 0.6 K/mcL (0.0-1.3); Monocytes % 7.5 %; Neutrophils # 6.2 K/mcL (1.6-8.9); Platelet Count 313 K/mcL (140-400); Red Blood Count 4.12 M/mcL (4.19-5.50); Segmented Neutrophils % 77.6 %
[2019-06-05 06:31] LABS: INR 1.2; Prothrombin Time 13.2 Seconds (9.4-12.1)
[2019-06-05 06:51] LABS: Alanine Aminotransferase 8 Units/L (7-52); Albumin 3.9 g/dL (3.5-5.7); Albumin/Globulin Ratio 1.4 (1.1-2.2); Alkaline Phosphatase 102 Units/L (34-104); Aspartate Amino Transferase 9 Units/L (13-39); BUN/Creatinine Ratio 21 (6-26); Bilirubin,Total 0.8 mg/dL (0.3-1.0); Blood Urea Nitrogen 16 mg/dL (8-23); Calcium 9.1 mg/dL (8.6-10.3); Carbon Dioxide 27 mEq/L (23-29); Chloride 101 mEq/L (98-107); Globulin 2.8 g/dL (2.4-3.5); Glucose 95 mg/dL (70-105); Osmolality,Calculated 283 (280-300); Potassium 4.7 mEq/L (3.5-5.1); Sodium 136 mEq/L (136-145); Total Protein 6.7 g/dL (6.4-8.9); eGFR For African Americans > 60 (> 60); eGFR For Non-African Americans > 60 (> 60)
[2019-06-05] MEDS ORDERED: Nicotine 21 MG PATCH.TD24 TD SCH (09:00)
[2019-06-05] MEDS ORDERED: Ondansetron 4 MG/2 ML VIAL ONE ×3 (10:47→13:34)
[2019-06-05] MEDS ORDERED: Pantoprazole 40 MG VIAL IVP ONE (10:49)
[2019-06-05] MEDS ORDERED: 0.9 % Sodium Chloride 1,000 ML ONE ×2 (10:52→18:33)
[2019-06-05] MEDS ORDERED: *HR* Propofol 200 MG/20 ML VIAL IVP ONE ×4 (11:29→14:00)
[2019-06-05] MEDS ORDERED: *HR* Succinylcholine 200 MG/10 ML VIAL IVP ONE ×2 (11:29→13:34)
[2019-06-05] MEDS ORDERED: Lidocaine -MPF 2% 2 ML VIAL ONE ×2 (11:29→13:34)
[2019-06-05] MEDS ORDERED: *HR* FentaNYL (PF) 100 MCG/2 ML VIAL ONE ×4 (11:30→16:17)
[2019-06-05] MEDS ORDERED: *HR* EPINEPHrine 1 MG/10 ML SYRINGE INTRATRACH PRN ×3 (11:33→17:26)
[2019-06-05] MEDS ORDERED: EPHEDrine 50 MG/ML VIAL ONE (11:47)
[2019-06-05] MEDS ORDERED: *HR* Rocuronium Bromide 50 MG/5 ML VIAL ONE ×3 (11:59→16:17)
[2019-06-05] MEDS ORDERED: *HR* Midazolam HCl 2 MG/2 ML VIAL ONE (12:06)
[2019-06-05] MEDS ORDERED: *HR* EPINEPHrine 1 MG/10 ML SYRINGE ONE ×2 (12:09→14:33)
[2019-06-05] MEDS ORDERED: Artificial Tears SOLN 15 ML BOTTLE BOTH EYES PRN ×2 (12:33→17:26)
[2019-06-05] MEDS ORDERED: 0.9 % Sodium Chloride 250 ML IVC SCH ×6 (12:45→17:26)
[2019-06-05] MEDS ORDERED: FentaNYL (PF) 1,000 MCG in 0.9 % Sodium Chloride 80 ML IVC SCH (12:45)
[2019-06-05] MEDS ORDERED: EPINEPHrine 1 MG/ML VIAL ONE (12:54)
[2019-06-05] MEDS ORDERED: *HR* FentaNYL (PF) 100 MCG/2 ML VIAL IVP ONE ×2 (12:55→17:26)
[2019-06-05] MEDS ORDERED: *HR* Midazolam HCl 5 MG/5 ML VIAL IVP ONE ×4 (12:55→16:17)
[2019-06-05] MEDS ORDERED: WATER FOR INJ IVPB ONE (13:07)
[2019-06-05] MEDS ORDERED: [UNRECOGNIZED DRUG - OTHER] IVPB ONE (13:07)
[2019-06-05] MEDS ORDERED: HUM PROTHROMBIN CPLX IVPB ONE (13:07)
[2019-06-05 13:19] LABS: ABG Base Excess -2 mEq/L (-2 to 3); ABG HCO3 30 mEq/L (21-27); ABG Oxygen Saturation 70 % (95-98); ABG PCO2 91 mmHg (35-45); ABG PH 7.12 pH Units (7.32-7.45); ABG PO2 50 mmHg (85-104); ABG TCO2 33 mEq/L (20-26)
[2019-06-05] MEDS ORDERED: CeFAZolin Syr 2,000MG/20 ML 2,000 MG/20 ML SYRINGE IVPB ONE (13:25)
[2019-06-05] MEDS ORDERED: Heparin 1,000 UNITS/500 mL 500 ML ONE (13:26)
[2019-06-05] MEDS ORDERED: *HR* Phenylephrine 10 MG/ML VIAL ONE ×2 (13:29→13:34)
[2019-06-05] MEDS ORDERED: Lidocaine HCL 4 ML Topical Solution (Laryng-O-Jet Kit Sterile Pak) TP ONE (13:34)
[2019-06-05] MEDS ORDERED: Heparin 1,000 UNITS/500 mL 0 ML ONE (13:34)
[2019-06-05] MEDS ORDERED: Dexamethasone 4 MG/ML VIAL ONE (13:34)
[2019-06-05 13:53] LABS: Basophils # 0.1 K/mcL (0.0-0.2); Basophils % 0.5 %; Eosinophils # 0.1 K/mcL (0.0-0.6); Eosinophils % 0.4 %; Hematocrit 38.4 % (37.5-50.1); Hemoglobin 12.9 g/dL (12.9-16.9); Immature Granulocytes % 0.3 % (0-4); Lymphocytes % 24.9 %; Mean Corpuscular HGB Conc 33.6 g/dL (31.6-35.5); Mean Corpuscular Hemoglobin 31.3 pg (28.0-33.3); Mean Corpuscular Volume 93.2 fL (83.0-100.0); Mean Platelet Volume 9.1 fL (9.4-12.4); Monocytes # 0.9 K/mcL (0.0-1.3); Monocytes % 7.1 %; Platelet Count 372 K/mcL (140-400); Red Blood Count 4.12 M/mcL (4.19-5.50); Segmented Neutrophils % 66.8 %
[2019-06-05 13:58] LABS: INR 1.3; Prothrombin Time 14.3 Seconds (9.4-12.1)
[2019-06-05 14:00] LABS: Activated Partial Thrombo Time 32.1 Seconds (26.0-36.0)
[2019-06-05] MEDS ORDERED: *HR* PHENYLEPHRINE 1,000 MCG/10 ML SYRINGE IVP ONE (14:00)
[2019-06-05 14:07] LABS: Neutrophils # 8.2 K/mcL (1.6-8.9); White Blood Count 12.2 K/mcL (4.3-11.1)
[2019-06-05] MEDS ORDERED: Albumin Human 5% 0 GM/0 ML VIAL ONE (14:22)
[2019-06-05] MEDS ORDERED: *HR* Vasopressin 20 UNIT/ML VIAL ONE (14:22)
[2019-06-05 14:23] LABS: Albumin 3.8 g/dL (3.5-5.7); Albumin/Globulin Ratio 1.5 (1.1-2.2); Bilirubin,Direct 0.2 mg/dL (0.0-0.2); Bilirubin,Indirect 0.8 mg/dL (0.0-1.0); Globulin 2.6 g/dL (2.4-3.5); Total Protein 6.4 g/dL (6.4-8.9)
[2019-06-05 14:33] LABS: Appearance of Body Fluid Cloudy (Clear); Volume of Body Fluid 24 mL
[2019-06-05] MEDS ORDERED: *HR* Adenosine 6 MG/2 ML VIAL IVP ONE (14:41)
[2019-06-05] MEDS ORDERED: DilTIAZem 50 MG in 0.9 % Sodium Chloride 40 ML IVC SCH ×2 (14:45→17:26)
[2019-06-05 15:25] LABS: ABG Base Excess -2 mEq/L (-2 to 3); ABG Chloride 104 mEq/L (98-107); ABG Glucose 152 mg/dL (60-95); ABG HCO3 27 mEq/L (21-27); ABG Ionized Calcium 1.05 mmol/L (1.15-1.35); ABG Oxygen Saturation 100 % (95-98); ABG PCO2 65 mmHg (35-45); ABG PH 7.22 pH Units (7.32-7.45); ABG PO2 266 mmHg (85-104); ABG TCO2 29 mEq/L (20-26)
[2019-06-05] MEDS ORDERED: Norepinephrine 4 MG in 0.9 % Sodium Chloride 250 ML IVC SCH ×2 (15:30→17:45)
[2019-06-05] MEDS ORDERED: *HR* Norepinephrine 4 MG/4 ML VIAL IVC ONE (15:33)
[2019-06-05] MEDS ORDERED: Artificial Tears SOLN 15 ML BOTTLE BOTH EYES SCH (16:00)
[2019-06-05 16:33] LABS: ABG Base Excess -7 mEq/L (-2 to 3); ABG Chloride 110 mEq/L (98-107); ABG Glucose 169 mg/dL (60-95); ABG HCO3 21 mEq/L (21-27); ABG Ionized Calcium 1.03 mmol/L (1.15-1.35); ABG Oxygen Saturation 100 % (95-98); ABG PCO2 51 mmHg (35-45); ABG PH 7.22 pH Units (7.32-7.45); ABG PO2 370 mmHg (85-104); ABG TCO2 23 mEq/L (20-26)
[2019-06-05] MEDS ORDERED: Sodium Bicarbonate 50 MEQ/50 ML VIAL ONE (16:33)
[2019-06-05] MEDS ORDERED: Morphine Sulfate 2 MG/ML SYRINGE IVP PRN (17:26)
[2019-06-05 18:02] LABS: Basophils % 0.2 %; Eosinophils % 0.1 %; Hematocrit 39.2 % (37.5-50.1); Hemoglobin 13.5 g/dL (12.9-16.9); Immature Granulocytes % 0.4 % (0-4); Lymphocytes # 0.5 K/mcL (0.6-4.6); Lymphocytes % 2.9 %; Mean Corpuscular HGB Conc 34.4 g/dL (31.6-35.5); Mean Corpuscular Volume 89.9 fL (83.0-100.0); Mean Platelet Volume 8.7 fL (9.4-12.4); Monocytes # 0.9 K/mcL (0.0-1.3); Monocytes % 4.7 %; Neutrophils # 17.1 K/mcL (1.6-8.9); Platelet Count 282 K/mcL (140-400); Red Blood Count 4.36 M/mcL (4.19-5.50); Red Cell Distribution Width 13.4 % (11.5-14.5); Segmented Neutrophils % 91.7 %
[2019-06-05 18:04] LABS: White Blood Count 18.6 K/mcL (4.3-11.1)
[2019-06-05 18:22] LABS: BUN/Creatinine Ratio 20 (6-26); Blood Urea Nitrogen 13 mg/dL (8-23); Calcium 10.3 mg/dL (8.6-10.3); Carbon Dioxide 28 mEq/L (23-29); Chloride 103 mEq/L (98-107); Glucose 186 mg/dL (70-105); Magnesium 1.5 mg/dL (1.6-2.6); Osmolality,Calculated 287 (280-300); Phosphorous 3.1 mg/dL (2.7-4.5); Potassium 4.4 mEq/L (3.5-5.1); Sodium 136 mEq/L (136-145); eGFR For African Americans > 60 (> 60); eGFR For Non-African Americans > 60 (> 60)
[2019-06-05] MEDS ORDERED: Phenylephrine 10 MG in 0.9 % Sodium Chloride 250 ML IVC SCH (18:30)
[2019-06-05 18:39] LABS: ABG Base Excess 0 mEq/L (-2 to 3); ABG HCO3 28 mEq/L (21-27); ABG Oxygen Saturation 99 % (95-98); ABG PCO2 57 mmHg (35-45); ABG PH 7.29 pH Units (7.32-7.45); ABG PO2 160 mmHg (85-104); ABG TCO2 30 mEq/L (20-26); Blood Gas Modality ASSIST CONTROL; Blood Gas VT 400 cc
[2019-06-05] MEDS ORDERED: Amiodarone Premix 360 MG/200 ML BAG IVC ONE ×2 (18:55→18:57)
[2019-06-05] MEDS ORDERED: Amiodarone Premix 150 MG/100 ML BAG IVPB ONE ×2 (18:55→18:56)
[2019-06-05] MEDS ORDERED: 0.9 % Sodium Chloride 500 ML IVC ONE (19:02)
[2019-06-05] MEDS: Phenylephrine 50 MG in 0.9 % Sodium Chloride 250 ML IVC SCH (20:05)
[2019-06-05 20:57] LABS: ABG Base Excess -1 mEq/L (-2 to 3); ABG HCO3 27 mEq/L (21-27); ABG Oxygen Saturation 96 % (95-98); ABG PCO2 61 mmHg (35-45); ABG PH 7.26 pH Units (7.32-7.45); ABG PO2 93 mmHg (85-104); ABG TCO2 29 mEq/L (20-26); Blood Gas Modality ASSIST CONTROL; Blood Gas VT 400 cc
[2019-06-05] MEDS ORDERED: Chlorhexidine Rinse 15 ML MOUTHWASH MM SCH (21:00)
[2019-06-05] MEDS: FentaNYL (PF) 1,000 MCG in 0.9 % Sodium Chloride 80 ML IVC SCH (22:17)
[2019-06-05] MEDS: Chlorhexidine Rinse 15 ML MOUTHWASH MM SCH (22:19)
[2019-06-05] MEDS: Artificial Tears SOLN 15 ML BOTTLE BOTH EYES SCH (22:19)
[2019-06-06] MEDS: Artificial Tears SOLN 15 ML BOTTLE BOTH EYES SCH ×3 (00:18→08:11)
[2019-06-06 00:20] LABS: ABG Base Excess -2 mEq/L (-2 to 3); ABG HCO3 26 mEq/L (21-27); ABG Oxygen Saturation 98 % (95-98); ABG PCO2 57 mmHg (35-45); ABG PH 7.27 pH Units (7.32-7.45); ABG PO2 124 mmHg (85-104); ABG TCO2 28 mEq/L (20-26); Blood Gas Modality ASSIST CONTROL; Blood Gas VT 400 cc
[2019-06-06] MEDS: Amiodarone Premix 360 MG/200 ML BAG IVC SCH ×2 (01:11→12:30)
[2019-06-06] MEDS: Phenylephrine 50 MG in 0.9 % Sodium Chloride 250 ML IVC SCH (01:32)
[2019-06-06 03:28] LABS: Mean Corpuscular Hemoglobin 30.7 pg (28.0-33.3); Mean Corpuscular Volume 90.2 fL (83.0-100.0); Mean Platelet Volume 9.2 fL (9.4-12.4); Platelet Count 338 K/mcL (140-400); Red Blood Count 3.88 M/mcL (4.19-5.50); White Blood Count 19.2 K/mcL (4.3-11.1)
[2019-06-06 03:29] LABS: Hemoglobin 11.9 g/dL (12.9-16.9)
[2019-06-06 03:32] LABS: Prothrombin Time 11.9 Seconds (9.4-12.1)
[2019-06-06 03:35] LABS: Activated Partial Thrombo Time 30.2 Seconds (26.0-36.0)
[2019-06-06 03:51] LABS: % Iron Saturation 5 % (20-55); Alanine Aminotransferase 13 Units/L (7-52); Albumin 3.1 g/dL (3.5-5.7); Albumin/Globulin Ratio 1.4 (1.1-2.2); Alkaline Phosphatase 77 Units/L (34-104); Aspartate Amino Transferase 14 Units/L (13-39); BUN/Creatinine Ratio 14 (6-26); Bilirubin,Direct 0.5 mg/dL (0.0-0.2); Bilirubin,Indirect 0.9 mg/dL (0.0-1.0); Bilirubin,Total 1.4 mg/dL (0.3-1.0); Blood Urea Nitrogen 12 mg/dL (8-23); Calcium 8.9 mg/dL (8.6-10.3); Carbon Dioxide 22 mEq/L (23-29); Chloride 106 mEq/L (98-107); Globulin 2.2 g/dL (2.4-3.5); Glucose 189 mg/dL (70-105); Iron 12 mcg/dL (65-175); Osmolality,Calculated 287 (280-300); Phosphorous 3.8 mg/dL (2.7-4.5); Potassium 4.4 mEq/L (3.5-5.1); Sodium 136 mEq/L (136-145); Total Protein 5.3 g/dL (6.4-8.9); Transferrin 186 mg/dL (203-362); eGFR For African Americans > 60 (> 60); eGFR For Non-African Americans > 60 (> 60)
[2019-06-06] MEDS: FentaNYL (PF) 1,000 MCG in 0.9 % Sodium Chloride 80 ML IVC SCH (04:16)
[2019-06-06 04:43] LABS: ABG Base Excess -2 mEq/L (-2 to 3); ABG HCO3 26 mEq/L (21-27); ABG Oxygen Saturation 98 % (95-98); ABG PCO2 59 mmHg (35-45); ABG PH 7.26 pH Units (7.32-7.45); ABG PO2 114 mmHg (85-104); ABG TCO2 28 mEq/L (20-26); Blood Gas Modality ASSIST CONTROL; Blood Gas VT 400 cc
[2019-06-06] MEDS: Nicotine 21 MG PATCH.TD24 TD SCH (08:10)
[2019-06-06] MEDS: Chlorhexidine Rinse 15 ML MOUTHWASH MM SCH (08:10)
[2019-06-06] MEDS: Pantoprazole 40 MG VIAL IVP SCH (08:10)
[2019-06-06] MEDS ORDERED: Pantoprazole 40 MG VIAL IVP SCH ×2 (09:00)
[2019-06-06] MEDS ORDERED: *HR* HYDROcodone/Acet 5/325 mg TABLET PO PRN (09:09)
[2019-06-06] MEDS ORDERED: Iron Sucrose Complex 400 MG in 0.9 % Sodium Chloride 250 ML IVPB ONE (09:10)
[2019-06-06] MEDS ORDERED: Furosemide 20 MG/2 ML VIAL IVP ONE (11:07)
[2019-06-06] MEDS: Ipratropium/Albuterol Neb 3 ML IH SCH ×4 (11:10→23:16)
[2019-06-06] MEDS: Ketorolac 15 MG/ML VIAL IVP SCH ×3 (12:04→22:47)
[2019-06-06] MEDS: Gabapentin 300 MG CAPSULE PO SCH ×2 (15:13→19:11)
[2019-06-06] MEDS ORDERED: Ondansetron 4 MG/2 ML VIAL IVP PRN (15:57)
[2019-06-06] MEDS ORDERED: Amiodarone Premix 150 MG/100 ML BAG IVPB ONE (16:44)
[2019-06-06] MEDS: *HR* Heparin 5,000 UNIT/ML VIAL SQ SCH (18:06)
[2019-06-06 22:19] LABS: ABG Base Excess 4 mEq/L (-2 to 3); ABG HCO3 30 mEq/L (21-27); ABG Oxygen Saturation 92 % (95-98); ABG PCO2 52 mmHg (35-45); ABG PH 7.38 pH Units (7.32-7.45); ABG PO2 65 mmHg (85-104); ABG TCO2 32 mEq/L (20-26)
[2019-06-06] MEDS ORDERED: *HR* Digoxin 0.5 MG/2 ML AMPUL IVP ONE (22:31)
[2019-06-06] MEDS: Acetylcysteine 10% 2 ML INHSOL IH SCH ×3 (22:55→23:21)
[2019-06-07] MEDS: Amiodarone Premix 360 MG/200 ML BAG IVC SCH ×2 (01:10→13:26)
[2019-06-07] MEDS ORDERED: *HR* Digoxin 0.5 MG/2 ML AMPUL IVP ONE (02:00)
[2019-06-07] MEDS: Ipratropium/Albuterol Neb 3 ML IH SCH ×6 (03:56→23:52)
[2019-06-07] MEDS: Acetylcysteine 10% 2 ML INHSOL IH SCH ×6 (03:56→23:52)
[2019-06-07 04:34] LABS: Hematocrit 32.4 % (37.5-50.1); Hemoglobin 10.8 g/dL (12.9-16.9); Mean Corpuscular HGB Conc 33.3 g/dL (31.6-35.5); Mean Corpuscular Hemoglobin 30.6 pg (28.0-33.3); Mean Corpuscular Volume 91.8 fL (83.0-100.0); Mean Platelet Volume 9.3 fL (9.4-12.4); Platelet Count 226 K/mcL (140-400); Red Blood Count 3.53 M/mcL (4.19-5.50); Red Cell Distribution Width 14.4 % (11.5-14.5)
[2019-06-07 04:55] LABS: BUN/Creatinine Ratio 26 (6-26); Blood Urea Nitrogen 19 mg/dL (8-23); Calcium 8.8 mg/dL (8.6-10.3); Carbon Dioxide 30 mEq/L (23-29); Chloride 101 mEq/L (98-107); Glucose 128 mg/dL (70-105); Magnesium 2.2 mg/dL (1.6-2.6); Osmolality,Calculated 288 (280-300); Phosphorous 3.1 mg/dL (2.7-4.5); Potassium 4.3 mEq/L (3.5-5.1); Sodium 137 mEq/L (136-145); eGFR For African Americans > 60 (> 60); eGFR For Non-African Americans > 60 (> 60)
[2019-06-07] MEDS: Ketorolac 15 MG/ML VIAL IVP SCH ×4 (06:08→23:09)
[2019-06-07] MEDS: *HR* Heparin 5,000 UNIT/ML VIAL SQ SCH ×3 (06:08→21:06)
[2019-06-07] MEDS ORDERED: Furosemide 40 MG/4 ML VIAL IVP ONE (07:13)
[2019-06-07] MEDS ORDERED: Furosemide 20 MG/2 ML VIAL IVP ONE (07:33)
[2019-06-07] MEDS: Pantoprazole 40 MG VIAL IVP SCH (08:04)
[2019-06-07] MEDS: Nicotine 21 MG PATCH.TD24 TD SCH (08:05)
[2019-06-07] MEDS: Gabapentin 300 MG CAPSULE PO SCH ×3 (08:05→21:04)
[2019-06-07] MEDS ORDERED: Doxycycline 100 MG CAPSULE PO SCH (09:00)
[2019-06-07] MEDS ORDERED: MethylPREDNISolone 40 MG/ML VIAL IVP SCH (18:00)
[2019-06-07] MEDS: Metoprolol XL (24 HR) Succ 25 MG TAB.ER.24H PO SCH (19:34)
[2019-06-08] MEDS: Amiodarone Premix 360 MG/200 ML BAG IVC SCH ×2 (00:10→11:51)
[2019-06-08] MEDS: Acetylcysteine 10% 2 ML INHSOL IH SCH ×6 (03:35→23:30)
[2019-06-08] MEDS: Ipratropium/Albuterol Neb 3 ML IH SCH ×2 (03:35→18:10)
[2019-06-08] MEDS ORDERED: Furosemide 20 MG/2 ML VIAL IVP ONE ×3 (04:36→14:00)
[2019-06-08] MEDS: Ketorolac 15 MG/ML VIAL IVP SCH ×4 (05:03→23:26)
[2019-06-08] MEDS: *HR* Heparin 5,000 UNIT/ML VIAL SQ SCH ×3 (05:03→20:47)
[2019-06-08 05:41] LABS: Hematocrit 29.5 % (37.5-50.1); Hemoglobin 9.7 g/dL (12.9-16.9); Mean Corpuscular HGB Conc 32.9 g/dL (31.6-35.5); Mean Corpuscular Hemoglobin 31.5 pg (28.0-33.3); Mean Corpuscular Volume 95.8 fL (83.0-100.0); Mean Platelet Volume 9.9 fL (9.4-12.4); Platelet Count 225 K/mcL (140-400); Red Blood Count 3.08 M/mcL (4.19-5.50); Red Cell Distribution Width 14.3 % (11.5-14.5); White Blood Count 12.9 K/mcL (4.3-11.1)
[2019-06-08 06:09] LABS: BUN/Creatinine Ratio 26 (6-26); Blood Urea Nitrogen 20 mg/dL (8-23); Calcium 8.6 mg/dL (8.6-10.3); Carbon Dioxide 30 mEq/L (23-29); Chloride 98 mEq/L (98-107); Glucose 121 mg/dL (70-105); Magnesium 2.1 mg/dL (1.6-2.6); Osmolality,Calculated 288 (280-300); Phosphorous 2.3 mg/dL (2.7-4.5); Potassium 4.1 mEq/L (3.5-5.1); Sodium 137 mEq/L (136-145); eGFR For African Americans > 60 (> 60); eGFR For Non-African Americans > 60 (> 60)
[2019-06-08] MEDS ORDERED: *HR* Metoprolol 5 MG/5 ML VIAL IVP ONE ×2 (07:59→08:00)
[2019-06-08] MEDS ORDERED: Iron Sucrose Complex 400 MG in 0.9 % Sodium Chloride 250 ML IVPB ONE (08:00)
[2019-06-08] MEDS: Esmolol 2.5 GM/250 ML MLS IVC SCH ×2 (08:49→18:46)
[2019-06-08] MEDS: Levalbuterol Neb 1.25 MG/3 ML IH SCH ×4 (10:50→23:29)
[2019-06-08] MEDS: Gabapentin 300 MG CAPSULE PO SCH ×3 (10:53→20:47)
[2019-06-08] MEDS: Nicotine 21 MG PATCH.TD24 TD SCH (10:53)
[2019-06-08] MEDS: Metoprolol XL (24 HR) Succ 25 MG TAB.ER.24H PO SCH (10:54)
[2019-06-08 17:10] LABS: BUN/Creatinine Ratio 22 (6-26); Blood Urea Nitrogen 20 mg/dL (8-23); Calcium 8.6 mg/dL (8.6-10.3); Carbon Dioxide 29 mEq/L (23-29); Chloride 100 mEq/L (98-107); Glucose 130 mg/dL (70-105); Magnesium 2.5 mg/dL (1.6-2.6); Osmolality,Calculated 282 (280-300); Phosphorous 3.7 mg/dL (2.7-4.5); Potassium 4.6 mEq/L (3.5-5.1); Sodium 134 mEq/L (136-145); eGFR For African Americans > 60 (> 60); eGFR For Non-African Americans > 60 (> 60)
[2019-06-08] MEDS: Famotidine 20 MG TABLET PO SCH (20:47)
[2019-06-09] MEDS: Amiodarone Premix 360 MG/200 ML BAG IVC SCH ×2 (01:00→13:56)
[2019-06-09] MEDS: Levalbuterol Neb 1.25 MG/3 ML IH SCH ×5 (03:54→19:53)
[2019-06-09] MEDS: Acetylcysteine 10% 2 ML INHSOL IH SCH ×5 (03:55→19:53)
[2019-06-09 03:56] LABS: Hematocrit 30.4 % (37.5-50.1); Mean Corpuscular HGB Conc 32.9 g/dL (31.6-35.5); Mean Corpuscular Volume 94.1 fL (83.0-100.0); Mean Platelet Volume 9.4 fL (9.4-12.4); Platelet Count 262 K/mcL (140-400); Red Blood Count 3.23 M/mcL (4.19-5.50); White Blood Count 12.8 K/mcL (4.3-11.1)
[2019-06-09 04:10] LABS: BUN/Creatinine Ratio 24 (6-26); Blood Urea Nitrogen 19 mg/dL (8-23); Calcium 8.7 mg/dL (8.6-10.3); Carbon Dioxide 28 mEq/L (23-29); Chloride 100 mEq/L (98-107); Glucose 118 mg/dL (70-105); Magnesium 2.1 mg/dL (1.6-2.6); Osmolality,Calculated 281 (280-300); Phosphorous 3.4 mg/dL (2.7-4.5); Potassium 4.4 mEq/L (3.5-5.1); Sodium 134 mEq/L (136-145); eGFR For African Americans > 60 (> 60); eGFR For Non-African Americans > 60 (> 60)
[2019-06-09] MEDS: Ketorolac 15 MG/ML VIAL IVP SCH ×4 (05:32→23:56)
[2019-06-09] MEDS: *HR* Heparin 5,000 UNIT/ML VIAL SQ SCH ×3 (05:32→20:23)
[2019-06-09] MEDS ORDERED: Furosemide 20 MG/2 ML VIAL IVP ONE (07:29)
[2019-06-09] MEDS: Famotidine 20 MG TABLET PO SCH ×2 (08:08→20:23)
[2019-06-09] MEDS: Gabapentin 300 MG CAPSULE PO SCH ×3 (08:08→20:23)
[2019-06-09] MEDS: Nicotine 21 MG PATCH.TD24 TD SCH (08:09)
[2019-06-09] MEDS: Esmolol 2.5 GM/250 ML MLS IVC SCH ×2 (10:00→14:52)
[2019-06-10] MEDS: Acetylcysteine 10% 2 ML INHSOL IH SCH ×7 (00:19→23:36)
[2019-06-10] MEDS: Levalbuterol Neb 1.25 MG/3 ML IH SCH ×7 (00:19→23:36)
[2019-06-10] MEDS: Esmolol 2.5 GM/250 ML MLS IVC SCH ×2 (00:40→15:33)
[2019-06-10] MEDS: Amiodarone Premix 360 MG/200 ML BAG IVC SCH (02:42)
[2019-06-10] MEDS: Ketorolac 15 MG/ML VIAL IVP SCH ×4 (06:02→23:50)
[2019-06-10] MEDS: *HR* Heparin 5,000 UNIT/ML VIAL SQ SCH ×3 (06:02→20:15)
[2019-06-10 07:12] LABS: Basophils % 0.3 %; Eosinophils % 0.2 %; Hematocrit 30.1 % (37.5-50.1); Hemoglobin 9.7 g/dL (12.9-16.9); Immature Granulocytes % 0.9 % (0-4); Lymphocytes # 0.6 K/mcL (0.6-4.6); Lymphocytes % 5.2 %; Mean Corpuscular HGB Conc 32.2 g/dL (31.6-35.5); Mean Corpuscular Volume 96.2 fL (83.0-100.0); Mean Platelet Volume 9.2 fL (9.4-12.4); Monocytes # 0.7 K/mcL (0.0-1.3); Monocytes % 5.8 %; Neutrophils # 10.3 K/mcL (1.6-8.9); Platelet Count 296 K/mcL (140-400); Red Blood Count 3.13 M/mcL (4.19-5.50); Red Cell Distribution Width 14.2 % (11.5-14.5); Segmented Neutrophils % 87.6 %; White Blood Count 11.8 K/mcL (4.3-11.1)
[2019-06-10 07:26] LABS: Alanine Aminotransferase 15 Units/L (7-52); Albumin 2.8 g/dL (3.5-5.7); Albumin/Globulin Ratio 1.1 (1.1-2.2); Alkaline Phosphatase 64 Units/L (34-104); Aspartate Amino Transferase 15 Units/L (13-39); BUN/Creatinine Ratio 37 (6-26); Bilirubin,Total 1.2 mg/dL (0.3-1.0); Blood Urea Nitrogen 25 mg/dL (8-23); Calcium 8.6 mg/dL (8.6-10.3); Carbon Dioxide 26 mEq/L (23-29); Chloride 102 mEq/L (98-107); Globulin 2.5 g/dL (2.4-3.5); Glucose 125 mg/dL (70-105); Magnesium 1.9 mg/dL (1.6-2.6); Osmolality,Calculated 282 (280-300); Phosphorous 2.9 mg/dL (2.7-4.5); Potassium 4.4 mEq/L (3.5-5.1); Sodium 133 mEq/L (136-145); Total Protein 5.3 g/dL (6.4-8.9); eGFR For African Americans > 60 (> 60); eGFR For Non-African Americans > 60 (> 60)
[2019-06-10] MEDS: Famotidine 20 MG TABLET PO SCH ×2 (08:15→20:15)
[2019-06-10] MEDS: Gabapentin 300 MG CAPSULE PO SCH ×3 (08:15→20:15)
[2019-06-10] MEDS: Nicotine 21 MG PATCH.TD24 TD SCH (08:26)
[2019-06-11] MEDS: Acetylcysteine 10% 2 ML INHSOL IH SCH ×2 (03:37→07:20)
[2019-06-11] MEDS: Levalbuterol Neb 1.25 MG/3 ML IH SCH ×5 (03:37→21:56)
[2019-06-11] MEDS: Ketorolac 15 MG/ML VIAL IVP SCH (06:07)
[2019-06-11] MEDS: *HR* Heparin 5,000 UNIT/ML VIAL SQ SCH (06:07)
[2019-06-11] MEDS: Famotidine 20 MG TABLET PO SCH ×2 (08:14→21:46)
[2019-06-11] MEDS: Gabapentin 300 MG CAPSULE PO SCH ×3 (08:14→21:46)
[2019-06-11] MEDS: Nicotine 21 MG PATCH.TD24 TD SCH (08:14)
[2019-06-11] MEDS ORDERED: Naloxone 0.4 MG/ML INJ IVP PRN (09:12)
[2019-06-11] MEDS ORDERED: *HR* HYDROcodone/Acet 5/325 mg TABLET PO PRN (09:12)
[2019-06-11] MEDS ORDERED: Acetaminophen 325 MG TABLET PO PRN (09:12)
[2019-06-11] MEDS ORDERED: Ondansetron 4 MG/2 ML VIAL IVP PRN (09:12)
[2019-06-11] MEDS ORDERED: Levalbuterol Neb 1.25 MG/3 ML IH SCH (10:00)
[2019-06-11] MEDS: Apixaban 5 MG TABLET PO SCH ×2 (10:12→21:46)
[2019-06-11] MEDS ORDERED: *HR* Heparin 5,000 UNIT/ML VIAL SQ SCH (14:00)
[2019-06-12] MEDS: Levalbuterol Neb 1.25 MG/3 ML IH SCH ×4 (03:43→21:53)
[2019-06-12] MEDS: Famotidine 20 MG TABLET PO SCH ×2 (08:32→20:49)
[2019-06-12] MEDS: Nicotine 21 MG PATCH.TD24 TD SCH (08:32)
[2019-06-12] MEDS: Apixaban 5 MG TABLET PO SCH ×2 (08:32→20:49)
[2019-06-12] MEDS: Metoprolol XL (24 HR) Succ 25 MG TAB.ER.24H PO SCH (08:33)
[2019-06-12] MEDS: Gabapentin 300 MG CAPSULE PO SCH ×3 (08:33→20:49)
[2019-06-12] MEDS ORDERED: Furosemide 20 MG TABLET PO ONE (09:00)
[2019-06-13] MEDS: Levalbuterol Neb 1.25 MG/3 ML IH SCH ×3 (03:53→15:36)
[2019-06-13 06:42] VITALS: BP 125/68
[2019-06-13] MEDS: Nicotine 21 MG PATCH.TD24 TD SCH (08:10)
[2019-06-13] MEDS: Famotidine 20 MG TABLET PO SCH (08:10)
[2019-06-13] MEDS: Metoprolol XL (24 HR) Succ 25 MG TAB.ER.24H PO SCH (08:11)
[2019-06-13] MEDS: Apixaban 5 MG TABLET PO SCH (08:11)
[2019-06-13] MEDS: Gabapentin 300 MG CAPSULE PO SCH ×2 (08:11→15:07)
[2019-06-13 08:34] LABS: Hematocrit 28.7 % (37.5-50.1); Hemoglobin 9.1 g/dL (12.9-16.9); Mean Corpuscular HGB Conc 31.7 g/dL (31.6-35.5); Mean Corpuscular Hemoglobin 30.1 pg (28.0-33.3); Platelet Count 442 K/mcL (140-400); Red Blood Count 3.02 M/mcL (4.19-5.50); Red Cell Distribution Width 14.8 % (11.5-14.5); White Blood Count 11.1 K/mcL (4.3-11.1)
[2019-06-13 08:44] LABS: % Iron Saturation 14 % (20-55); BUN/Creatinine Ratio 25 (6-26); Blood Urea Nitrogen 15 mg/dL (8-23); Calcium 8.5 mg/dL (8.6-10.3); Carbon Dioxide 31 mEq/L (23-29); Chloride 101 mEq/L (98-107); Glucose 136 mg/dL (70-105); Iron 29 mcg/dL (65-175); Magnesium 2.1 mg/dL (1.6-2.6); Osmolality,Calculated 285 (280-300); Phosphorous 2.8 mg/dL (2.7-4.5); Potassium 4.2 mEq/L (3.5-5.1); Sodium 136 mEq/L (136-145); Transferrin 148 mg/dL (203-362); eGFR For African Americans > 60 (> 60); eGFR For Non-African Americans > 60 (> 60)
== END 2019-06-13 17:10 | disposition home health service (06) | DRG 163 ==
LOC: 2NENU → SUATTDRO 04:40 → ICNU 12:03 → SUATTDRO 14:12 → 2NNU 06-11 11:48
PROVIDERS: ADMIT Pharmacist; ATTEND Internal Medicine
PROC: ENDOBRF (2019-06-05 13:00)

== ENCOUNTER 2019-07-07 16:06 | Inpatient (IN) ==
[2019-07-07] MEDS ORDERED: Ondansetron 4 MG/2 ML VIAL IVP PRN (16:24)
[2019-07-07] MEDS ORDERED: Naloxone 0.4 MG/ML INJ IVP PRN (16:24)
[2019-07-07] MEDS ORDERED: 0.9 % Sodium Chloride 500 ML IVC PRN (17:11)
[2019-07-07] MEDS: 0.9 % Sodium Chloride 1,000 ML IVC SCH (17:20)
[2019-07-07] MEDS: MethylPREDNISolone 40 MG/ML VIAL IVP SCH (17:47)
[2019-07-07] MEDS: Piperacillin/Tazobactam 3.375 GM in 0.9 % Sodium Chloride Mini Bag 100 ML IVPB SCH (19:56)
[2019-07-07] MEDS: Apixaban 5 MG TABLET PO SCH (19:57)
[2019-07-07] MEDS: Levalbuterol Neb 0.63 MG/3 ML IH SCH (22:30)
[2019-07-08 02:28] LABS: Basophils % 0.1 %; Mean Platelet Volume 9.5 fL (9.4-12.4); Red Cell Distribution Width 15.4 % (11.5-14.5)
[2019-07-08 02:29] LABS: Hematocrit 32.5 % (37.5-50.1); Hemoglobin 9.4 g/dL (12.9-16.9); Immature Granulocytes % 0.4 % (0-4); Lymphocytes # 0.3 K/mcL (0.6-4.6); Lymphocytes % 1.9 %; Mean Corpuscular HGB Conc 28.9 g/dL (31.6-35.5); Mean Corpuscular Hemoglobin 29.4 pg (28.0-33.3); Mean Corpuscular Volume 101.6 fL (83.0-100.0); Monocytes # 0.3 K/mcL (0.0-1.3); Monocytes % 1.6 %; Neutrophils # 15.3 K/mcL (1.6-8.9); Platelet Count 451 K/mcL (140-400); White Blood Count 15.9 K/mcL (4.3-11.1)
[2019-07-08 02:46] LABS: BUN/Creatinine Ratio 33 (6-26); Blood Urea Nitrogen 22 mg/dL (8-23); Calcium 8.6 mg/dL (8.6-10.3); Carbon Dioxide 35 mEq/L (23-29); Chloride 104 mEq/L (98-107); Glucose 180 mg/dL (70-105); Magnesium 2.3 mg/dL (1.6-2.6); Osmolality,Calculated 298 (280-300); Potassium 4.5 mEq/L (3.5-5.1); Sodium 140 mEq/L (136-145); eGFR For African Americans > 60 (> 60); eGFR For Non-African Americans > 60 (> 60)
[2019-07-08 03:05] LABS: Platelet Estimate Increased (Normal)
[2019-07-08] MEDS: Levalbuterol Neb 0.63 MG/3 ML IH SCH ×4 (03:55→22:12)
[2019-07-08] MEDS: Piperacillin/Tazobactam 3.375 GM in 0.9 % Sodium Chloride Mini Bag 100 ML IVPB SCH ×3 (03:57→20:04)
[2019-07-08] MEDS: 0.9 % Sodium Chloride 1,000 ML IVC SCH (03:59)
[2019-07-08] MEDS: MethylPREDNISolone 40 MG/ML VIAL IVP SCH ×2 (06:13→18:49)
[2019-07-08] MEDS ORDERED: *HR* Metoprolol 5 MG/5 ML VIAL IVP PRN (07:16)
[2019-07-08] MEDS: Apixaban 5 MG TABLET PO SCH ×2 (08:00→20:04)
[2019-07-08] MEDS ORDERED: Aminoglycoside Consult 1 EACH MC ONE (08:57)
[2019-07-08] MEDS ORDERED: Metoprolol XL (24 HR) Succ 50 MG TAB.ER.24H PO SCH (09:00)
[2019-07-08] MEDS ORDERED: Gabapentin 300 MG CAPSULE PO PRN (16:15)
[2019-07-09] MEDS: Levalbuterol Neb 0.63 MG/3 ML IH SCH ×4 (03:29→21:59)
[2019-07-09] MEDS: Piperacillin/Tazobactam 3.375 GM in 0.9 % Sodium Chloride Mini Bag 100 ML IVPB SCH ×3 (03:41→21:46)
[2019-07-09 05:13] LABS: Basophils % 0.1 %; Immature Granulocytes % 0.7 % (0-4); Monocytes % 2.5 %; Red Cell Distribution Width 15.4 % (11.5-14.5)
[2019-07-09 05:15] LABS: Hematocrit 31.5 % (37.5-50.1); Hemoglobin 9.1 g/dL (12.9-16.9); Lymphocytes # 0.4 K/mcL (0.6-4.6); Lymphocytes % 1.9 %; Mean Corpuscular HGB Conc 28.9 g/dL (31.6-35.5); Mean Corpuscular Hemoglobin 29.8 pg (28.0-33.3); Mean Corpuscular Volume 103.3 fL (83.0-100.0); Mean Platelet Volume 9.4 fL (9.4-12.4); Monocytes # 0.5 K/mcL (0.0-1.3); Neutrophils # 18.3 K/mcL (1.6-8.9); Platelet Count 418 K/mcL (140-400); Red Blood Count 3.05 M/mcL (4.19-5.50); Segmented Neutrophils % 94.8 %; White Blood Count 19.3 K/mcL (4.3-11.1)
[2019-07-09 05:27] LABS: BUN/Creatinine Ratio 34 (6-26); Blood Urea Nitrogen 22 mg/dL (8-23); Carbon Dioxide 38 mEq/L (23-29); Chloride 103 mEq/L (98-107); Glucose 151 mg/dL (70-105); Magnesium 2.4 mg/dL (1.6-2.6); Osmolality,Calculated 296 (280-300); Potassium 5.2 mEq/L (3.5-5.1); Sodium 140 mEq/L (136-145); eGFR For African Americans > 60 (> 60); eGFR For Non-African Americans > 60 (> 60)
[2019-07-09 05:48] LABS: Hypochromasia Present (Not Present); Platelet Estimate Normal (Normal)
[2019-07-09] MEDS: MethylPREDNISolone 40 MG/ML VIAL IVP SCH ×2 (06:02→17:11)
[2019-07-09] MEDS: Apixaban 5 MG TABLET PO SCH ×2 (08:39→21:46)
[2019-07-09] MEDS: Aspirin Enteric Coated 81 MG Tablet PO SCH (08:39)
[2019-07-09] MEDS: Megestrol Acetate 400 MG/10 ML UDC PO SCH (08:40)
[2019-07-09] MEDS ORDERED: Metoprolol XL (24 HR) Succ 50 MG TAB.ER.24H PO SCH (09:00)
[2019-07-09] MEDS: Budesonide/Formoterol 160/4.5 1 PUFF INH IH SCH ×2 (09:51→21:59)
[2019-07-10] MEDS: Piperacillin/Tazobactam 3.375 GM in 0.9 % Sodium Chloride Mini Bag 100 ML IVPB SCH (03:30)
[2019-07-10] MEDS: Levalbuterol Neb 0.63 MG/3 ML IH SCH ×2 (03:45→10:19)
[2019-07-10 04:42] LABS: Basophils % 0.1 %; Immature Granulocytes % 0.5 % (0-4); Lymphocytes # 0.5 K/mcL (0.6-4.6); Lymphocytes % 3.1 %; Mean Corpuscular Hemoglobin 29.7 pg (28.0-33.3); Mean Corpuscular Volume 102.3 fL (83.0-100.0); Mean Platelet Volume 9.5 fL (9.4-12.4); Monocytes # 0.7 K/mcL (0.0-1.3); Monocytes % 4.3 %; Neutrophils # 15.4 K/mcL (1.6-8.9); Platelet Count 385 K/mcL (140-400); Red Blood Count 3.03 M/mcL (4.19-5.50); Red Cell Distribution Width 15.4 % (11.5-14.5); White Blood Count 16.8 K/mcL (4.3-11.1)
[2019-07-10 05:15] LABS: BUN/Creatinine Ratio 42 (6-26); Blood Urea Nitrogen 22 mg/dL (8-23); Calcium 9.1 mg/dL (8.6-10.3); Carbon Dioxide 40 mEq/L (23-29); Chloride 101 mEq/L (98-107); Glucose 173 mg/dL (70-105); Osmolality,Calculated 299 (280-300); Potassium 4.8 mEq/L (3.5-5.1); Sodium 141 mEq/L (136-145); eGFR For African Americans > 60 (> 60); eGFR For Non-African Americans > 60 (> 60)
[2019-07-10 07:40] VITALS: BP 106/69
[2019-07-10] MEDS: Aspirin Enteric Coated 81 MG Tablet PO SCH (08:51)
[2019-07-10] MEDS: Apixaban 5 MG TABLET PO SCH (08:51)
[2019-07-10] MEDS: Megestrol Acetate 400 MG/10 ML UDC PO SCH (08:52)
[2019-07-10] MEDS ORDERED: Metoprolol XL (24 HR) Succ 50 MG TAB.ER.24H PO SCH (09:00)
[2019-07-10] MEDS ORDERED: predniSONE 20 MG TABLET PO SCH (09:00)
[2019-07-10] MEDS: Budesonide/Formoterol 160/4.5 1 PUFF INH IH SCH (10:19)
== END 2019-07-10 10:39 | disposition home health service (06) | DRG 871 ==
LOC: 2NNU → OBSVTOIN 16:20 → SUATTDRO 16:20 → 3ANU 07-08 15:00
PROVIDERS: ADMIT Family Medicine; ATTEND Internal Medicine

== ENCOUNTER 2019-08-08 20:43 | Inpatient (IN) ==
[2019-08-08] MEDS ORDERED: Piperacillin/Tazobactam 3.375 GM in Water for inj. (sterile) 20 ML IVP ONE (20:58)
[2019-08-08] MEDS ORDERED: Vancomycin 1,000 MG VIAL IVPB STA (20:58)
[2019-08-08] MEDS ORDERED: Isovue-370 500 ML BOTTLE IVP ONE ×2 (21:07→22:12)
[2019-08-08 21:20] LABS: Basophils % 0.4 %; Eosinophils % 0.1 %; Hematocrit 41.6 % (37.5-50.1); Hemoglobin 12.1 g/dL (12.9-16.9); Immature Granulocytes % 0.3 % (0-4); Lymphocytes # 1.7 K/mcL (0.6-4.6); Mean Corpuscular HGB Conc 29.1 g/dL (31.6-35.5); Mean Corpuscular Hemoglobin 29.4 pg (28.0-33.3); Mean Platelet Volume 9.3 fL (9.4-12.4); Monocytes # 0.6 K/mcL (0.0-1.3); Neutrophils # 8.1 K/mcL (1.6-8.9); Platelet Count 443 K/mcL (140-400); Red Blood Count 4.12 M/mcL (4.19-5.50); Red Cell Distribution Width 15.8 % (11.5-14.5); Segmented Neutrophils % 77.2 %; White Blood Count 10.5 K/mcL (4.3-11.1)
[2019-08-08 21:25] LABS: INR 1.5; Prothrombin Time 17.6 Seconds (9.4-12.1)
[2019-08-08 21:29] LABS: Activated Partial Thrombo Time 29.3 Seconds (26.0-36.0)
[2019-08-08 21:38] LABS: VBG HCO3 39 mEq/L (21-27); VBG PCO2 72 mmHg (41-51); VBG PH 7.34 pH Units (7.32-7.42); VBG PO2 121 mmHg (25-50)
[2019-08-08 21:44] LABS: BUN/Creatinine Ratio 31 (6-26); Blood Urea Nitrogen 21 mg/dL (8-23); Calcium 9.9 mg/dL (8.6-10.3); Carbon Dioxide 40 mEq/L (23-29); Chloride 95 mEq/L (98-107); Glucose 222 mg/dL (70-105); Osmolality,Calculated 296 (280-300); Potassium 4.8 mEq/L (3.5-5.1); Sodium 138 mEq/L (136-145); Troponin I < 0.03 ng/mL (< 0.04); eGFR For African Americans > 60 (> 60); eGFR For Non-African Americans > 60 (> 60)
[2019-08-08] MEDS ORDERED: Furosemide 40 MG/4 ML VIAL IVP ONE (22:11)
[2019-08-09] MEDS ORDERED: Naloxone 0.4 MG/ML INJ IVP PRN (01:13)
[2019-08-09] MEDS ORDERED: Ondansetron 4 MG/2 ML VIAL IVP PRN (01:13)
[2019-08-09] MEDS ORDERED: Gabapentin 300 MG CAPSULE PO PRN ×2 (01:32→11:45)
[2019-08-09] MEDS ORDERED: Dextrose Gel 15 GM/37.5 ML TUBE PO PRN ×2 (01:35)
[2019-08-09] MEDS ORDERED: D5% in Water 1,000 ML IVC PRN (01:35)
[2019-08-09] MEDS ORDERED: *HR* Dextrose 50 % in Water (Syg) 50 ML SYRINGE IVP PRN (01:35)
[2019-08-09 01:42] LABS: Basophils % 0.1 %; Mean Corpuscular Hemoglobin 29.3 pg (28.0-33.3); Monocytes % 5.7 %; Red Cell Distribution Width 15.6 % (11.5-14.5)
[2019-08-09 01:43] LABS: Hematocrit 38.6 % (37.5-50.1); Hemoglobin 11.1 g/dL (12.9-16.9); Immature Granulocytes % 0.3 % (0-4); Lymphocytes # 0.8 K/mcL (0.6-4.6); Lymphocytes % 9.6 %; Mean Corpuscular HGB Conc 28.8 g/dL (31.6-35.5); Mean Corpuscular Volume 101.8 fL (83.0-100.0); Mean Platelet Volume 9.3 fL (9.4-12.4); Monocytes # 0.5 K/mcL (0.0-1.3); Neutrophils # 7.3 K/mcL (1.6-8.9); Platelet Count 356 K/mcL (140-400); Red Blood Count 3.79 M/mcL (4.19-5.50); Segmented Neutrophils % 84.3 %; White Blood Count 8.7 K/mcL (4.3-11.1)
[2019-08-09 01:59] LABS: BUN/Creatinine Ratio 29 (6-26); Blood Urea Nitrogen 20 mg/dL (8-23); Calcium 9.5 mg/dL (8.6-10.3); Carbon Dioxide > 45 mEq/L (23-29); Chloride 95 mEq/L (98-107); Chol/HDL Ratio 2.5 (0-4.9); Cholesterol 81 mg/dL (< 200); Glucose 145 mg/dL (70-105); HDL Cholesterol 32 mg/dL (40-59); LDL Cholesterol,Calculated 34 mg/dL (0-99); Magnesium 1.9 mg/dL (1.6-2.6); Osmolality,Calculated 295 (280-300); Potassium 4.4 mEq/L (3.5-5.1); Sodium 140 mEq/L (136-145); Triglycerides 74 mg/dL (< 150); Troponin I < 0.03 ng/mL (< 0.04); eGFR For African Americans > 60 (> 60); eGFR For Non-African Americans > 60 (> 60)
[2019-08-09 02:36] LABS: Hypochromasia Present (Not Present); Platelet Estimate Normal (Normal); Stomatocytes 1+ (Not Present)
[2019-08-09] MEDS: Insulin LISPRO 300 UNITS/3 ML VIAL SQ SCH ×4 (05:17→22:43)
[2019-08-09 08:45] LABS: Lactate Dehydrogenase 114 Units/L (140-271); Total Protein 5.9 g/dL (6.4-8.9)
[2019-08-09] MEDS: Metoprolol XL (24 HR) Succ 50 MG TAB.ER.24H PO SCH ×2 (08:56→21:04)
[2019-08-09] MEDS: Piperacillin/Tazobactam 3.375 GM in 0.9 % Sodium Chloride Mini Bag 100 ML IVPB SCH ×3 (08:58→23:35)
[2019-08-09] MEDS ORDERED: Apixaban 5 MG TABLET PO SCH (09:00)
[2019-08-09] MEDS: Megestrol Acetate 400 MG/10 ML UDC PO SCH (09:55)
[2019-08-09] MEDS ORDERED: Budesonide/Formoterol 160/4.5 1 PUFF INH IH SCH (10:00)
[2019-08-09] MEDS ORDERED: Furosemide 40 MG/4 ML VIAL IVP ONE (10:56)
[2019-08-09] MEDS ORDERED: predniSONE 20 MG TABLET PO SCH (11:00)
[2019-08-09 13:04] LABS: Amylase,Pleural Fluid 15 Units/L (No Ref Range); Glucose,Pleural Fluid 129 mg/dL (No Ref Range); LDH,Pleural Fluid 50 Units/L (No Ref Range); Total Protein,Pleural Fluid < 3.0 g/dL
[2019-08-09] MEDS ORDERED: predniSONE 20 MG TABLET PO STA (13:14)
[2019-08-09 13:43] LABS: Appearance of Pleural Fl Hazy (Clear)
[2019-08-09] MEDS ORDERED: Aminoglycoside Consult 1 EACH MC ONE (14:37)
[2019-08-09] MEDS: Budesonide/Formoterol 160/4.5 1 PUFF INH IH SCH (19:49)
[2019-08-09] MEDS: Apixaban 5 MG TABLET PO SCH (22:42)
[2019-08-10 04:37] LABS: Basophils % 0.2 %; Immature Granulocytes % 0.3 % (0-4); Mean Corpuscular Hemoglobin 29.3 pg (28.0-33.3)
[2019-08-10 04:38] LABS: Hematocrit 34.3 % (37.5-50.1); Hemoglobin 9.8 g/dL (12.9-16.9); Lymphocytes # 1.1 K/mcL (0.6-4.6); Mean Corpuscular HGB Conc 28.6 g/dL (31.6-35.5); Mean Corpuscular Volume 102.4 fL (83.0-100.0); Mean Platelet Volume 9.1 fL (9.4-12.4); Monocytes # 0.6 K/mcL (0.0-1.3); Monocytes % 8.8 %; Neutrophils # 4.9 K/mcL (1.6-8.9); Platelet Count 317 K/mcL (140-400); Red Blood Count 3.35 M/mcL (4.19-5.50); Red Cell Distribution Width 15.5 % (11.5-14.5); Segmented Neutrophils % 74.7 %; White Blood Count 6.6 K/mcL (4.3-11.1)
[2019-08-10 04:55] LABS: Hypochromasia Present (Not Present)
[2019-08-10 04:56] LABS: Platelet Estimate Normal (Normal)
[2019-08-10 05:04] LABS: BUN/Creatinine Ratio 24 (6-26); Blood Urea Nitrogen 19 mg/dL (8-23); Calcium 8.9 mg/dL (8.6-10.3); Carbon Dioxide > 45 mEq/L (23-29); Chloride 93 mEq/L (98-107); Glucose 126 mg/dL (70-105); Magnesium 1.9 mg/dL (1.6-2.6); Osmolality,Calculated 294 (280-300); Phosphorous 3.8 mg/dL (2.7-4.5); Potassium 4.5 mEq/L (3.5-5.1); Sodium 140 mEq/L (136-145); eGFR For African Americans > 60 (> 60); eGFR For Non-African Americans > 60 (> 60)
[2019-08-10] MEDS ORDERED: Insulin LISPRO 300 UNITS/3 ML VIAL SQ SCH (07:30)
[2019-08-10] MEDS: Insulin LISPRO 300 UNITS/3 ML VIAL SQ SCH ×4 (08:25→21:06)
[2019-08-10] MEDS: Furosemide 40 MG/4 ML VIAL IVP SCH (08:50)
[2019-08-10] MEDS: Megestrol Acetate 400 MG/10 ML UDC PO SCH (08:50)
[2019-08-10] MEDS: Apixaban 5 MG TABLET PO SCH ×2 (08:50→21:03)
[2019-08-10] MEDS: Piperacillin/Tazobactam 3.375 GM in 0.9 % Sodium Chloride Mini Bag 100 ML IVPB SCH (08:50)
[2019-08-10] MEDS: predniSONE 20 MG TABLET PO SCH (08:50)
[2019-08-10] MEDS: Budesonide/Formoterol 160/4.5 1 PUFF INH IH SCH ×2 (10:52→22:54)
[2019-08-10] MEDS ORDERED: Azithromycin 250 MG TABLET PO ONE (11:27)
[2019-08-10] MEDS: Metoprolol XL (24 HR) Succ 50 MG TAB.ER.24H PO SCH ×2 (12:16→19:52)
[2019-08-11 05:19] LABS: Basophils % 0.1 %; Immature Granulocytes % 0.3 % (0-4)
[2019-08-11 05:20] LABS: Eosinophils % 0.1 %; Hematocrit 35.4 % (37.5-50.1); Lymphocytes # 1.1 K/mcL (0.6-4.6); Mean Corpuscular HGB Conc 28.2 g/dL (31.6-35.5); Mean Corpuscular Hemoglobin 28.9 pg (28.0-33.3); Mean Corpuscular Volume 102.3 fL (83.0-100.0); Mean Platelet Volume 9.2 fL (9.4-12.4); Monocytes # 0.6 K/mcL (0.0-1.3); Monocytes % 7.7 %; Neutrophils # 5.6 K/mcL (1.6-8.9); Platelet Count 336 K/mcL (140-400); Red Blood Count 3.46 M/mcL (4.19-5.50); Red Cell Distribution Width 15.3 % (11.5-14.5); Segmented Neutrophils % 76.8 %; White Blood Count 7.3 K/mcL (4.3-11.1)
[2019-08-11 05:44] LABS: BUN/Creatinine Ratio 28 (6-26); Blood Urea Nitrogen 20 mg/dL (8-23); Calcium 9.3 mg/dL (8.6-10.3); Carbon Dioxide > 45 mEq/L (23-29); Chloride 89 mEq/L (98-107); Glucose 175 mg/dL (70-105); Hypochromasia Present (Not Present); Osmolality,Calculated 293 (280-300); Platelet Estimate Normal (Normal); Potassium 4.3 mEq/L (3.5-5.1); Sodium 138 mEq/L (136-145); eGFR For African Americans > 60 (> 60); eGFR For Non-African Americans > 60 (> 60)
[2019-08-11] MEDS ORDERED: Azithromycin 250 MG TABLET PO SCH (09:00)
[2019-08-11] MEDS: Insulin LISPRO 300 UNITS/3 ML VIAL SQ SCH (09:49)
[2019-08-11] MEDS: Furosemide 40 MG/4 ML VIAL IVP SCH (09:52)
[2019-08-11] MEDS: Apixaban 5 MG TABLET PO SCH (09:52)
[2019-08-11] MEDS: Megestrol Acetate 400 MG/10 ML UDC PO SCH (09:53)
[2019-08-11] MEDS: predniSONE 20 MG TABLET PO SCH (09:53)
[2019-08-11] MEDS: Metoprolol XL (24 HR) Succ 50 MG TAB.ER.24H PO SCH ×2 (09:53→10:58)
[2019-08-11] MEDS: Budesonide/Formoterol 160/4.5 1 PUFF INH IH SCH (10:29)
[2019-08-11 11:59] VITALS: BP 92/55
== END 2019-08-11 14:38 | disposition home or self-care (01) | DRG 291 ==
LOC: 3NENU 20:43 → EMEROOARM 20:43 → SUATTDRO 23:45 → 3NENU 08-09 00:57
PROVIDERS: ADMIT Internal Medicine; ATTEND Internal Medicine

== ENCOUNTER 2019-08-20 08:44 | Inpatient (IN) ==
[2019-08-20] MEDS ORDERED: Ondansetron ODT 4 MG TAB.RAPDIS SL PRN (12:48)
[2019-08-20] MEDS ORDERED: Naloxone 0.4 MG/ML INJ IVP PRN (12:48)
[2019-08-20] MEDS ORDERED: Acetaminophen 325 MG TABLET PO PRN (12:48)
[2019-08-20] MEDS ORDERED: Mag Hydrox/Al Hydrox/Simeth 30 ML UDC PO PRN (12:48)
[2019-08-20] MEDS ORDERED: MOM Conc 10 ML UD.LIQ PO PRN (12:48)
[2019-08-20] MEDS: Metoprolol XL (24 HR) Succ 50 MG TAB.ER.24H PO SCH ×2 (15:28→20:45)
[2019-08-20] MEDS ORDERED: *HR* HYDROcodone/Acet 5/325 mg TABLET PO PRN (16:01)
[2019-08-20] MEDS: predniSONE 20 MG TABLET PO SCH (20:46)
[2019-08-20] MEDS: Apixaban 5 MG TABLET PO SCH (20:46)
[2019-08-20] MEDS: Budesonide/Formoterol 160/4.5 1 PUFF INH IH SCH (23:05)
[2019-08-21 06:46] LABS: Hematocrit 34.2 % (37.5-50.1); Hemoglobin 10.1 g/dL (12.9-16.9); Mean Corpuscular HGB Conc 29.5 g/dL (31.6-35.5); Mean Corpuscular Volume 98.3 fL (83.0-100.0); Mean Platelet Volume 9.1 fL (9.4-12.4); Platelet Count 308 K/mcL (140-400); Red Blood Count 3.48 M/mcL (4.19-5.50); Red Cell Distribution Width 15.8 % (11.5-14.5); White Blood Count 11.2 K/mcL (4.3-11.1)
[2019-08-21 07:02] LABS: BUN/Creatinine Ratio 45 (6-26); Blood Urea Nitrogen 25 mg/dL (8-23); Calcium 9.5 mg/dL (8.6-10.3); Carbon Dioxide 39 mEq/L (23-29); Chloride 98 mEq/L (98-107); Glucose 149 mg/dL (70-105); Osmolality,Calculated 295 (280-300); Potassium 5.5 mEq/L (3.5-5.1); Sodium 139 mEq/L (136-145); eGFR For African Americans > 60 (> 60); eGFR For Non-African Americans > 60 (> 60)
[2019-08-21] MEDS: Budesonide/Formoterol 160/4.5 1 PUFF INH IH SCH ×2 (07:52→19:28)
[2019-08-21] MEDS ORDERED: Aminoglycoside Consult 1 EACH MC ONE (08:41)
[2019-08-21] MEDS: predniSONE 20 MG TABLET PO SCH (08:54)
[2019-08-21] MEDS: Furosemide 20 MG TABLET PO SCH (08:54)
[2019-08-21] MEDS: Metoprolol XL (24 HR) Succ 50 MG TAB.ER.24H PO SCH ×2 (08:54→22:14)
[2019-08-21] MEDS: Apixaban 5 MG TABLET PO SCH ×2 (08:54→22:14)
[2019-08-21] MEDS ORDERED: NON-FORMULARY MEDICATION 1 EACH EACH (Fluticasone/Vilanterol [Breo Ellipta 200-25 Mcg Inh] IH SCH (09:00)
[2019-08-21] MEDS: Megestrol Acetate 400 MG/10 ML UDC PO SCH (12:03)
[2019-08-21] MEDS: Tiotropium 18 MCG inhalation IH SCH (20:53)
[2019-08-21] MEDS: Cefepime HCl 2,000 MG in Water for inj. (sterile) 20 ML IVP SCH ×2 (22:06→23:53)
[2019-08-22 04:16] LABS: Basophils % 0.1 %
[2019-08-22 04:17] LABS: Hematocrit 35.5 % (37.5-50.1); Hemoglobin 10.2 g/dL (12.9-16.9); Immature Granulocytes % 0.5 % (0-4); Lymphocytes # 1.1 K/mcL (0.6-4.6); Lymphocytes % 8.5 %; Mean Corpuscular HGB Conc 28.7 g/dL (31.6-35.5); Mean Corpuscular Hemoglobin 29.5 pg (28.0-33.3); Mean Corpuscular Volume 102.6 fL (83.0-100.0); Monocytes # 0.8 K/mcL (0.0-1.3); Monocytes % 5.9 %; Neutrophils # 11.1 K/mcL (1.6-8.9); Platelet Count 328 K/mcL (140-400); Red Blood Count 3.46 M/mcL (4.19-5.50); Red Cell Distribution Width 15.9 % (11.5-14.5); White Blood Count 13.1 K/mcL (4.3-11.1)
[2019-08-22 04:37] LABS: BUN/Creatinine Ratio 35 (6-26); Blood Urea Nitrogen 25 mg/dL (8-23); Calcium 9.6 mg/dL (8.6-10.3); Carbon Dioxide 44 mEq/L (23-29); Chloride 96 mEq/L (98-107); Glucose 124 mg/dL (70-105); Osmolality,Calculated 294 (280-300); Potassium 4.8 mEq/L (3.5-5.1); Sodium 139 mEq/L (136-145); eGFR For African Americans > 60 (> 60); eGFR For Non-African Americans > 60 (> 60)
[2019-08-22 04:45] LABS: Hypochromasia Present (Not Present); Platelet Estimate Normal (Normal)
[2019-08-22] MEDS: Tiotropium 18 MCG inhalation IH SCH (07:37)
[2019-08-22] MEDS: Budesonide/Formoterol 160/4.5 1 PUFF INH IH SCH ×2 (07:37→21:57)
[2019-08-22] MEDS: Apixaban 5 MG TABLET PO SCH ×2 (07:42→20:35)
[2019-08-22] MEDS: Metoprolol XL (24 HR) Succ 50 MG TAB.ER.24H PO SCH ×2 (07:43→20:35)
[2019-08-22] MEDS: Cefepime HCl 2,000 MG in Water for inj. (sterile) 20 ML IVP SCH ×2 (07:44→15:13)
[2019-08-22] MEDS: Furosemide 20 MG TABLET PO SCH (07:44)
[2019-08-22] MEDS: predniSONE 20 MG TABLET PO SCH (07:44)
[2019-08-22] MEDS: Megestrol Acetate 400 MG/10 ML UDC PO SCH (08:29)
[2019-08-23] MEDS: Cefepime HCl 2,000 MG in Water for inj. (sterile) 20 ML IVP SCH ×3 (00:22→16:55)
[2019-08-23 03:04] LABS: Hemoglobin 10.1 g/dL (12.9-16.9); Red Cell Distribution Width 15.8 % (11.5-14.5)
[2019-08-23 03:05] LABS: Hematocrit 34.9 % (37.5-50.1); Mean Corpuscular HGB Conc 28.9 g/dL (31.6-35.5); Mean Corpuscular Hemoglobin 29.8 pg (28.0-33.3); Mean Corpuscular Volume 102.9 fL (83.0-100.0); Mean Platelet Volume 9.3 fL (9.4-12.4); Platelet Count 309 K/mcL (140-400); Red Blood Count 3.39 M/mcL (4.19-5.50); White Blood Count 10.1 K/mcL (4.3-11.1)
[2019-08-23 03:25] LABS: BUN/Creatinine Ratio 28 (6-26); Blood Urea Nitrogen 18 mg/dL (8-23); Calcium 9.1 mg/dL (8.6-10.3); Carbon Dioxide 45 mEq/L (23-29); Chloride 93 mEq/L (98-107); Glucose 170 mg/dL (70-105); Osmolality,Calculated 292 (280-300); Potassium 4.5 mEq/L (3.5-5.1); Sodium 138 mEq/L (136-145); eGFR For African Americans > 60 (> 60); eGFR For Non-African Americans > 60 (> 60)
[2019-08-23] MEDS: predniSONE 20 MG TABLET PO SCH (08:27)
[2019-08-23] MEDS: Metoprolol XL (24 HR) Succ 50 MG TAB.ER.24H PO SCH (08:28)
[2019-08-23] MEDS: Apixaban 5 MG TABLET PO SCH (08:29)
[2019-08-23] MEDS: Furosemide 20 MG TABLET PO SCH (08:29)
[2019-08-23] MEDS: Megestrol Acetate 400 MG/10 ML UDC PO SCH (08:44)
[2019-08-23] MEDS: Budesonide/Formoterol 160/4.5 1 PUFF INH IH SCH (09:33)
[2019-08-23] MEDS: Tiotropium 18 MCG inhalation IH SCH (09:34)
[2019-08-24 01:30] VITALS: BP 123/78
== END 2019-08-23 18:52 | disposition home or self-care (01) | DRG 177 ==
LOC: 2NENU → SUATTDRO 08-21 10:11 → 2ANU 08-22 21:37
PROVIDERS: ADMIT Internal Medicine; ATTEND Internal Medicine